=== PATIENT | male | born 1945 | race Caucasian/White ===

== ENCOUNTER 2022-03-02 09:55 | Outpatient (REF) | payer MEDICARE, SELFPAY ==
--- NOTE | ~2022-03-02 | US_ITS ---
EXAMINATION: US ABDOMEN LIMITED CLINICAL INFORMATION: Elevated levels of liver transaminase. COMPARISON: None. TECHNIQUE: Real-time imaging of the right upper quadrant abdominal viscera. FINDINGS: PANCREAS: Normal. LIVER: The liver is normal in size. The liver contour is normal. There is diffuse heterogeneous coarse echotexture.. No focal hepatic lesion. There is mild dilated intrahepatic ducts. GALLBLADDER: There is echogenic mobile bile The gallbladder is physiologically distended measuring 10.3 x 2.5 x 4.0 cm. There is no evidence of stones, polyps, wall thickening or pericholecystic fluid.. Gallbladder wall thickness is 0.18 cm. COMMON BILE DUCT: Normal in caliber measuring 0.7 cm in diameter. RIGHT KIDNEY: No hydronephrosis or renal calculi. The kidney measures 9.4 cm in maximum dimension. There are areas of cortical thinning with lobulated contour. There are anechoic cyst in midpole measuring 1.1 x 0.8 x 1.1 cm. FREE FLUID: None. US/US abdomen limited IMPRESSION: Mildly dilated gallbladder with sludge but no echogenic stones or wall thickening. There is no tenderness in right upper quadrant. Coarse echogenic liver without focal lesions. Mild right renal cortical thinning.
== END 2022-03-02 09:56 | disposition home or self-care (01) ==
LOC: HO.HMGCX 09:55
PROVIDERS: PCP Internal Medicine; Visit Provider Internal Medicine
DX: R74.01 Elevation of levels of liver transaminase levels (principal)
CPT/HCPCS: 76705

== ENCOUNTER → 2022-10-19 09:39 | Outpatient (BNVA) | payer MEDICARE, SELFPAY | PROVIDERS: PCP Internal Medicine; Visit Provider Internal Medicine Cardiovascular Disease | DX: I48.19 Other persistent atrial fibrillation (principal); I25.10 Atherosclerotic heart disease of native coronary artery without angina pectoris; Z79.899 Other long term (current) drug therapy | CPT/HCPCS: 93005; 99202 ==

== ENCOUNTER → 2022-10-28 10:45 | Outpatient (REF) | payer MEDICARE, SELFPAY ==
--- NOTE | 2022-10-28 10:58 | CA_ITS ---
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 The calculated ejection fraction is 52% by biplane method. - There is moderately increased left ventricular wall thickness. - The basal inferior and basal inferolateral segments are akinetic. - No obvious valvular pathology seen on this study. Findings Left Ventricle Normal left ventricular cavity size. There is moderately increased left ventricular wall thickness. The left ventricular systolic function is low normal. The calculated ejection fraction is 52% by biplane method. Diastolic function is indeterminate on the basis of available data. Wall Motion Rest Echo Findings The basal inferior and basal inferolateral segments are akinetic. Atria Both atria are normal in size. Aortic Valve There is mild calcification of the aortic valve. There is no aortic valve stenosis. There is no aortic valve regurgitation. Mitral Valve The mitral valve appears normal. There is trace mitral valve regurgitation. There is no mitral valve stenosis. Pulmonic Valve The pulmonic valve is likely normal. Tricuspid Valve There is trace tricuspid valve regurgitation. There is no evidence of pulmonary hypertension. Great Vessels The asc aorta is normal in size. Venous The inferior vena cava is normal in size and collapses greater than 50% with inspiration. Pericardium/Pleural There is no evidence of pericardial effusion. Prior Study Comparison No prior study available for comparison. Recommendations, Care & Conclusions No obvious valvular pathology seen on this study. Measurements 2D Linear Measurements IVSd: 1.45 0.6-0.9/0.6-1.0 cm LVIDd: 4.48 3.9-5.3/4.2-5.9 cm LVIDd Index: 2.42 2.4-3.2/2.2-3.1 cm/m2 LVIDs: 3.68 2.0-3.6 cm LVPWd: 1.37 0.7-1.1 cm Ao Root: 3.50 2.1-3.5 cm LA Diam: 4.40 2.7-3.8/3.0-4.0 cm LAIDs Index: 2.38 1.5-2.3 cm/m2 LV Mass: 311.07 67-162/88-224 g LV Mass Index: 168.14 43-95/49-115 g/m2 LVOT Diam: 2.10 3.0+(-)1.3 cm 2D Systolic Function EF 4C: 56.90 >55% EF 2C: 51.10 >55% EF BiP: 52.40 >55% Mitral Valve MV Pk E: 0.81 MV Decel Time: 172.00 E'Lateral: 12.60 E'Medial: 8.38 E/E' Med: 9.60 E/E' Lat: 6.40 PHT: 50.00 MVA PHT: 4.40 Decel [place]: 4.69 Aortic Valve AoV Pk Rafael: 1.32 AoV Mn Rafael: 0.88 AoV VTI: 0.24 AoV Pk Grad: 7.00 Aov Mn Grad: 4.00 MARNI Cont.VTI: 1.94 LVOT LVOT Pk Rafael: 0.63 LVOT Mn Rafael: 0.38 LVOT VTI: 0.13 LVOT Pk Grad: 2.00 LVOT Mn Grad: 1.00 LVOT Diam: 2.10 LVOT Area: 3.46 Diastolic Function MV Pk E: 0.81 E'Medial: 8.38 E/E' Med: 9.60 E' Laterial: 12.60 E/E' Lat: 6.40 Right Ventricle TVS' Rafael: 11.00 Tricuspid Valve TR Pk Rafael: 1.72 TR Pk Grad: 12.00 RA Press: 3.00 RVSP: 15.00 Great Vessels Aorta Ao Root-2D: 3.50 2.0-3.7 cm Ao Asc: 3.70 2.1-3.4 cm Pulmonary Valve PV Pk Rafael: 0.73 Peak PV Grad: 2.00 Updated in Other Vendor System with Status of Final Marlon Martinez MD electronically signed on 10/30/2022 10:55:51 AM with status of Final
--- NOTE | 2022-10-28 10:58 | HM_ITS ---
* Total monitoring time approximately 3 days. * Underlying rhythm is atrial fibrillation. Average ventricular rate 79/Min. Range 39 to 161/Min. * About 4% of the time, rate >100/min. * 10 pauses, greater than 2.5 seconds. Longest 3.5 seconds during sleep hours. Does not appear significant. * Frequent PVCs with a burden of 1.75%. Short runs noted. Longest 7 beats. * No patient markers or diary. MTDD
[2022-10-28 11:43] LABS: Hematocrit 48.6 % (42.0-52.0); Hemoglobin 16.2 g/dl (14.0-18.0); Mean Corpuscular HGB Conc 33.3 g/dl (31.0-36.0); Mean Corpuscular Hemoglobin 28.8 pg (27.0-33.0); Mean Corpuscular Volume 86.5 fL (80.0-98.0); Mean Platelet Volume 10.2 fL (9.4-12.4); Platelet Count 243 X10*3/uL (160-400); Red Blood Count 5.62 X10*6/uL (4.60-5.80); Red Cell Distribution Width 14.4 % (11.0-16.0); White Blood Count 12.8 X10*3/uL (4.8-10.8)
[2022-10-28 11:57] LABS: Anion Gap 15 (12-20); Blood Urea Nitrogen 54 mg/dL (9-16); Calcium 9.6 mg/dL (8.4-10.2); Carbon Dioxide 32 mmol/L (22-29); Chloride 97 mmol/L (96-108); Estimated Glomerular Filt Rate 31; Glucose Random 119 mg/dL (60-115); Potassium 4.1 mmol/L (3.3-5.1); Sodium 140 mmol/L (135-145)
== END ==
LOC: HO.CARD 10:45
PROVIDERS: PCP Internal Medicine; Visit Provider Internal Medicine Cardiovascular Disease
DX: I48.19 Other persistent atrial fibrillation (principal)
CPT/HCPCS: 36415; 80048; 85027; 93242; 93306

== ENCOUNTER → 2022-11-07 09:35 | Outpatient (REF) | payer MEDICARE, SELFPAY ==
--- NOTE | ~2022-11-07 | NM_ITS ---
Myocardial perfusion study Indication: CAD with prior coronary bypass grafting for surveillance Technique: The patient was brought in for a Lexiscan perfusion study on 11/07/2022. Patient performed low-level exercise and was injected 0.4 mg of Lexiscan intravenously. Within a minute of injection, 25 mCi of sestamibi was given intravenously. Images were obtained using the SPECT gamma camera interlaced with the gating device. Images were obtained in supine position. Resting perfusion study was performed on 11/08/2022. Patient was administered 25 mCi of sestamibi intravenously at rest. Images were then obtained in supine position. Images obtained with and without CT attenuation. Total DLP 78 mGy-cm. Images were processed with the software and compared side to side in short axis, horizontal long axis and vertical long axis views. Findings: The stress perfusion study showed non attenuated images show moderately reduced uptake in the apical and mid inferior wall and severely reduced uptake in the basal inferior and inferolateral wall of the LV myocardium. Remainder of the LV myocardium is normally perfused. Attenuated corrected images show moderately reduced uptake in the basal inferolateral and mildly reduced uptake in the lateral as well as moderately reduced uptake in the basal inferior wall of the cardiac.. The gated study shows normal LV systolic function with calculated LVEF of 55%. LV cavity is normal in size. The gated study shows normal systolic wall thickening and contraction of segments. Resting study shows non attenuated images show partially improved uptake in the basal inferior and inferolateral wall of the LV myocardium. Attenuated corrected images also show improved uptake in the basal inferolateral and inferior wall of the LV myocardium.. Gating at rest reveals normal systolic wall motion with ejection fraction at 57%. The findings are consistent with small area of mild intensity basal inferolateral and inferior reversible defect suggestive of ischemia. NM/NM yadiel perf SPECT rest & str Impression: 1. Myocardial perfusion imaging study shows low risk study with mild intensity basal inferior and inferolateral ischemia 2. Gated LVEF is 55% 3. Transient ischemic dilatation not present EKG is nondiagnostic for ischemia
--- NOTE | 2022-11-07 09:37 | CA_ITS ---
Acquisition Time: 2022-11-07 09:46:55 Total Exercise Time: 00:02:00 Test Indications: CAD Medications: SEE H Protocol: LEXISCAN Max HR: 121 BPM 85% of Pred: 142 BPM Max BP: 154/072 mmHG Max Work Load: 1.0 METS Pharmacological stress test with Lexiscan injection, while sitting and kicking his legs, without anginal symptoms, with isolated PVCs, with normotensive response to injection, with nondiagnostic EKG for ischemia. In recovery he reported lmild lightheadedness that was treated with Aminophylline 75mg IVP to reverse Lexiscan with resolution of symptom. Nuclear images pending. Test reviewed with Dr Martinez Referred By: Timmy Sebastian Overread By: ADA ARGUELLO
== END ==
LOC: HO.CARD 09:35
PROVIDERS: PCP Internal Medicine; Visit Provider Internal Medicine Cardiovascular Disease
DX: I25.10 Atherosclerotic heart disease of native coronary artery without angina pectoris (principal)
CPT/HCPCS: 78452; 93017; A9500; J0280; J2785

== ENCOUNTER 2022-11-08 11:15 | Outpatient (REF) | payer MEDICARE, SELFPAY ==
--- NOTE | ~2022-11-08 | US_ITS ---
EXAMINATION: US EXTRACRANIAL CAROTID DUPLEX, BILATERAL CLINICAL INFORMATION: Carotid occlusion and stenosis. COMPARISON: None TECHNIQUE: Real-time ultrasound and Doppler techniques (integrating B-mode 2-D vascular images, Doppler spectral analysis and color-flow Doppler imaging) were utilized to interrogate the extracranial carotid arteries, the vertebral arteries and proximal subclavian arteries bilaterally. The degree of stenosis is determined by criteria similar to NASCET. FINDINGS: Right Side: 1. There is mild atherosclerotic plaque seen in the bifurcation/proximal ICA region. 2. The common carotid artery PSV proximally is 74 cm/s and distally 35 cm/s. 3. The proximal internal carotid artery velocities are 59 cm/s systolic and 14 cm/s diastolic. 4. The proximal external carotid artery PSV is 152 cm/s. 5. The vertebral artery shows antegrade flow. 6. The subclavian artery waveforms are normal. Left Side: 1. There is mild atherosclerotic plaque seen in the bifurcation/proximal ICA region. There is a stent in the proximal ICA which appears patent. 2. The common carotid artery PSV proximally is 75 cm/s and distally 41 cm/s. 3. The proximal internal carotid artery velocities are 43 cm/s systolic and 11 cm/s diastolic. 4. The proximal external carotid artery PSV is 136 cm/s. 5. The vertebral artery shows bidirectional flow. 6. The subclavian artery waveforms are normal. There is an arrhythmia seen. US/US carotid duplex BI IMPRESSION: 1. RIGHT: Minimal, non-hemodynamically significant stenosis of the proximal right internal carotid artery corresponding to a 0-49% stenosis by velocity criteria. 2. LEFT: Minimal, non-hemodynamically significant stenosis of the proximal left internal carotid artery corresponding to a 0-49% stenosis by velocity criteria. The internal carotid stent appears patent. 3. There is bidirectional flow in the left vertebral artery which may represent early subclavian steal.
== END 2022-11-08 11:16 | disposition home or self-care (01) ==
LOC: HO.US 11:15
PROVIDERS: PCP Internal Medicine; Visit Provider Internal Medicine Cardiovascular Disease
DX: I65.23 Occlusion and stenosis of bilateral carotid arteries (principal)
CPT/HCPCS: 93880

== ENCOUNTER → 2022-11-30 08:34 | Outpatient (BNVA) | payer MEDICARE, SELFPAY | PROVIDERS: PCP Internal Medicine; Referring Provider Internal Medicine; Visit Provider Internal Medicine Cardiovascular Disease | DX: I48.19 Other persistent atrial fibrillation (principal); I25.10 Atherosclerotic heart disease of native coronary artery without angina pectoris | CPT/HCPCS: 99212 ==

== ENCOUNTER → 2023-05-04 10:06 | Outpatient (REF) | payer MEDICARE, SELFPAY ==
--- NOTE | 2023-05-04 10:12 | HM_ITS ---
* Total monitoring time about 7 days. * Underlying rhythm is atrial fibrillation. Average ventricular rate 72/Min. Range 33-155/Min. * About 2.8% the time, rate less than 60/Min. About 3.8% the time, rate greater than 100/Min. * Frequent premature ventricular contractions with a burden of 1.9%. Occasional couplets. Longest run 3 beats. * Pauses noted, longest 3. 6 seconds, primarily during sleep hours. No significant pauses during the daytime hours. Do not reach significance. * No patient markers or events in diary. * Mostly well-controlled atrial fibrillation with occasional rapid rates. MTDD
== END ==
LOC: HO.CARD 10:06
PROVIDERS: PCP Internal Medicine; Visit Provider Internal Medicine Cardiovascular Disease
DX: I48.19 Other persistent atrial fibrillation (principal)
CPT/HCPCS: 93242

== ENCOUNTER → 2023-05-04 10:12 | Outpatient (BNV) | payer MEDICARE, SELFPAY | PROVIDERS: PCP Internal Medicine; Visit Provider Internal Medicine | DX: I48.19 Other persistent atrial fibrillation (principal) | CPT/HCPCS: 93244 ==

== ENCOUNTER 2023-06-05 09:52 | Outpatient (REF) | payer MEDICARE, SELFPAY ==
[2023-06-05 12:02] LABS: Hematocrit 45.2 % (42.0-52.0); Hemoglobin 14.8 g/dl (14.0-18.0); Mean Corpuscular HGB Conc 32.7 g/dl (31.0-36.0); Mean Corpuscular Hemoglobin 28.3 pg (27.0-33.0); Mean Corpuscular Volume 86.4 fL (80.0-98.0); Mean Platelet Volume 10.8 fL (9.4-12.4); Platelet Count 267 X10*3/uL (160-400); Red Blood Count 5.23 X10*6/uL (4.60-5.80); Red Cell Distribution Width 16.9 % (11.0-16.0); White Blood Count 9.8 X10*3/uL (4.8-10.8)
[2023-06-05 13:04] LABS: Anion Gap 15 (12-20); Blood Urea Nitrogen 33 mg/dL (9-16); Calcium 9.8 mg/dL (8.4-10.2); Carbon Dioxide 29 mmol/L (22-29); Chloride 100 mmol/L (96-108); Cholesterol 196 mg/dL (<200); Estimated Glomerular Filt Rate 34; Glucose Random 86 mg/dL (60-115); HDL Cholesterol 32 mg/dL (>40); LDL Cholesterol Calculated 142 mg/dL (<100); Sodium 139 mmol/L (135-145); Triglycerides 112 mg/dL (<150)
== END 2023-06-05 09:53 | disposition home or self-care (01) ==
LOC: HO.LAB 09:52
PROVIDERS: PCP Internal Medicine; Visit Provider Internal Medicine Cardiovascular Disease
DX: I25.10 Atherosclerotic heart disease of native coronary artery without angina pectoris (principal); I48.19 Other persistent atrial fibrillation
CPT/HCPCS: 36415; 80048; 80061; 85027; 93005; 99212

== ENCOUNTER 2023-06-05 09:52 | Outpatient (AMB) | payer MEDICARE, SELFPAY ==
--- NOTE | 2023-06-05 09:54 | A.OFFVIS_ITS ---
Intake Vital Signs 06/05/23 09:55 Height 5 ft 9 in Weight 156 lb 8.451 oz BMI 23.1 BP 120/82 Blood Pressure Location Lt brachial Position Sitting Pulse 88 Intake Visit Reasons: 6 month f/ up after testing Intake Note: 6 month follow-up with ekg was in [facility] [employer] Required: No Allergies acetaminophen [From Tylenol] Adverse Reaction (Severe, Verified 11/30/22 08:42) Difficulty Breathing Medication List - Last Reconciled 06/05/23 by Timmy Sebastian MD allopurinol 50 mg PO DAILY amlodipine 5 mg PO DAILY apixaban (Eliquis) 5 mg PO BID atorvastatin 40 mg PO BEDTIME bromfenac 0.09% 1 drp ophthalmic (eye) DAILY cholecalciferol (vitamin D3) 50 mcg PO DAILY cilostazol 50 mg PO BID metoprolol tartrate 25 mg PO BID pantoprazole 40 mg PO DAILY torsemide 20 mg PO BID HPI HPI Comments History of Present Illness Details Migue comes for follow-up. He has been doing well from cardiac perspective. Denies any cardiac symptoms. Denies any exertional angina. Denies any shortness of breath, orthopnea, PND, leg edema. Denies any prolonged palpitation irregular heartbeat. No changes exercise capacity overall. No bleeding issues or neurologic events. No lightheadedness, syncope. Takes all his medications. [facility] Medical History Internal carotid artery stent present PVD (peripheral vascular disease) CVA (cerebral vascular accident) Surgical History S/P CABG x 5 Family History Mother No problems noted. Father No problems noted. Social History Alcohol intake: former Year quit: 2021 Patient Tobacco Use Status: Current everyday Tobacco user Tobacco use type: Cigarette Cigarettes Per Day: 3 Review of Systems Const Denies chills, Denies fatigue, Denies fever(s), Denies frequent falls, Denies weakness, Denies weight gain and Denies weight loss ENT Denies dizziness Card Denies chest pain, Denies leg edema, Denies lightheadedness, Denies palpitations, Denies dyspnea, Denies dyspnea on exertion, Denies orthopnea and Denies other (loss of consciousness) Resp Denies cough, Denies dyspnea and Denies dyspnea on exertion GI Denies hematochezia and Denies change in stool character Musc Denies abnormal gait, Denies muscle weakness, Denies numbness, Denies radiating pain into limb and Denies tingling Neuro Denies Abnormal speech present, Denies abnormal gait, Denies dizziness, Denies frequent falls, Denies numbness, Denies tingling and Denies weakness Endo Denies fatigue and Denies palpitations Physical Exam Vital Signs: Last Vital Signs Pulse 88 06/05/23 09:55 BP 120/82 06/05/23 09:55 BMI result Body Mass Index 23.1 Const General: cooperative, comfortable, no acute distress, alert, awake, Physically active and well groomed Nutritional Appearance: thin Orientation/consciousness: patient oriented x3 Limitations: no limitations HEENT Head: Yes normocephalic and Yes atraumatic Neck Neck: Yes trachea midline, Yes supple and Yes no JVD Carotids: no bruits Chest Chest palpation & inspection: other ( Well-healed sternotomy scar) Resp Effort & Inspection: normal respiratory effort Auscultation: clear to auscultation bilaterally and diminished lung sounds Cardio Jugular venous distension: no JVD Rate: regular rate Rhythm: abnormal rhythm irregularly irregular Heart sounds: S1 normal heart sound present, S2 normal heart sound present, no click, no gallops and no murmurs Skin General skin exam: no rashes or lesions noted and ecchymosis Neuro General: patient oriented x3 and no focal motor deficits Speech: No Abnormal speech present Extrem General: Yes no clubbing, cyanosis or edema Office Procedures EKG Details: EKG shows atrial fibrillation with Q-waves in inferior leads with nonspecific ST changes [id number], Complete Assessment & Plan Assessment & Plan (1) CAD (coronary artery disease): Code(s): I25.10 - Atherosclerotic heart disease of [place] coronary artery without angina pectoris Plan: CAD with prior carpal coronary artery bypass grafting with possible branch vessel disease by myocardial perfusion imaging without any symptoms angina. He does have diffuse vascular disease including bilateral carotid disease as well as lower extremity disease. This is being followed by vascular surgery. His cardiac status currently stable. Continue full oral anticoagulation apixaban and avoid antiplatelet agent to reduce bleeding risk. Continue high-intensity statin therapy we. Target goal LDL closer to 60 mg/dL. Blood pressure is currently well optimized. (2) Persistent atrial fibrillation: Code(s): I48.19 - Other persistent atrial fibrillation Plan: Persistent rate control atrial fibrillation without any obvious symptoms or signs of cardiac decompensation. He is currently on high diuretic does he said was prescribed for leg edema. Ten other clinical signs of congestive heart failure. Continue current rate control strategy. Continue full oral anticoagulation. Quarterly renal function test should be pursued. Will follow up in the clinic in 6 months time after an echocardiogram. Thank you for allowing me to partake in his care Orders: Orders CA echo transthoracic complete 6 Months I48.19 - Other persistent atrial fibrillation Basic Metabolic Panel Today I48.19 - Other persistent atrial fibrillation Coding Level of Care Code Est Pt Level 4 (48052) Diagnoses CAD (coronary artery disease) I25.10 Persistent atrial fibrillation I48.19 CPT Codes EKG - CPT: 51524-[id number], Complete ([id number])
[2023-06-05 09:55] VITALS: BP 120/82; PULSE 88; BMI 23.1
== END 2023-06-05 10:26 | disposition home or self-care (01) ==
PROVIDERS: PCP Internal Medicine; Visit Provider Internal Medicine Cardiovascular Disease
DX: I25.10 Atherosclerotic heart disease of native coronary artery without angina pectoris (principal); I48.19 Other persistent atrial fibrillation
CPT/HCPCS: 93010; 99214

== ENCOUNTER 2023-07-24 18:08 | Outpatient (REF) | payer MEDICARE, SELFPAY ==
[2023-07-24 19:19] LABS: Influenza A PCR NEGATIVE (Negative); Influenza B PCR NEGATIVE (Negative); Resp Syncy Virus RNA Qual PCR POSITIVE (Negative); SARS COV2 PCR INHOUSE NEGATIVE (Negative)
== END 2023-07-24 18:09 | disposition home or self-care (01) ==
LOC: HO.CHCLNP 18:08
PROVIDERS: Visit Provider Family Medicine
DX: Z11.52 Encounter for screening for COVID-19 (principal); J06.9 Acute upper respiratory infection, unspecified
CPT/HCPCS: 0241U

== ENCOUNTER 2023-11-06 09:50 | Outpatient (AMB) | payer MEDICARE, SELFPAY ==
--- NOTE | 2023-11-05 19:04 | A.OFFVIS_ITS ---
Intake Vital Signs 11/06/23 09:51 Height 5 ft Weight 165 lb 5.547 oz BMI 32.3 BP 130/70 Blood Pressure Location Rt brachial Position Sitting Pulse 65 Pulse Source Pulse Oximeter Pulse Oximetry (%) 98 Oxygen Delivery Method Room Air Intake Visit Reasons: Chronic Bronchitis Grants Specialist Required: No Risk And Insurance Manager: Risk And Insurance Manager offered & declined Accompanied by: Self / Same As Patient Allergies acetaminophen [From Tylenol] Adverse Reaction (Severe, Verified 11/06/23 09:58) Difficulty Breathing Medication List - Last Reconciled 11/06/23 by Agustina Perera LPN allopurinol 50 mg PO DAILY amlodipine 5 mg PO DAILY apixaban (Eliquis) 5 mg PO BID atorvastatin 40 mg PO BEDTIME cholecalciferol (vitamin D3) 50 mcg PO DAILY cilostazol 50 mg PO BID metoprolol tartrate 25 mg PO BID pantoprazole 40 mg PO DAILY torsemide 20 mg PO BID HPI Chronic Bronchitis HPI Details Migue is a pleasant 77-year-old male, current minimal smoker with 30+ pyh, with underlying COPD, atrial fibrillation on anticoagulation and coronary artery disease status post CABG x5. He was referred by PCP for pulmonary evalu ation and for prolonged cough after URI. He was reportedly treated with antibiotics, unsure of name, and feels as though symptoms are back to baseline. CXR unremarkable,performed at [facility], report below. He denies any dyspnea, wheezing or chest tightness. However he does report intermittent fatigue after moderate exertion as well as a productive cough with clear sputum. 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 He is not interested in a daily inhaler at this time. He reports possible occupational exposures to asbestos, was in the [place] x 4 years. He reports sister, smoker, with COPD, otherwise no pertinent family history. He denies any history of asthma. Of note, patient also under the care of cardiology for CAD. He last had echo in 2022, report below. He denies any chest pain, palpitations, or dizziness. [facility], [facility] Medical History Internal carotid artery stent present PVD (peripheral vascular disease) CVA (cerebral vascular accident) Surgical History S/P CABG x 5 Family History Mother No problems noted. Father No problems noted. Social History (Updated 11/06/23 @ 10:01 by Agustina Perera LPN) Alcohol intake: former Year quit: 2021 Patient Tobacco Use Status: Current everyday Tobacco user Tobacco use type: Cigarette Cigarettes Per Day: 5 Review of Systems Const Denies chills, Denies excessive sweating, Denies fever(s), Denies headache(s) and Denies night sweats Eyes Denies dry eyes, Denies irritation and Denies itchy eyes ENT Reports Normal hearing present, Denies headache(s), Denies nasal congestion, Denies nasal discharge, Denies post nasal drip and Denies sore throat Card Denies chest pain, Denies chest pain at rest, Denies chest pain with activity, Denies claudication, Denies leg edema, Denies orthopnea and Denies paroxysmal nocturnal dyspnea Resp Denies chest congestion, Denies cough, Denies excessive phlegm production, Denies pain on inspiration, Denies pain with cough, Denies stridor and Denies wheezing Musc Denies myalgias Neuro Reports Normal hearing present and Denies headache(s) Endo Denies excessive sweating Sawyer/Lymph Denies lymphadenopathy Aller/Immun Denies itchy eyes, Denies seasonal rhinorrhea and Denies wheezing Physical Exam Vital Signs: Last Vital Signs Pulse 65 11/06/23 09:51 BP 130/70 11/06/23 09:51 Pulse Ox 98 11/06/23 09:51 Oxygen Delivery Method Room Air 11/06/23 09:51 BMI result Body Mass Index 32.3 Const General: cooperative, healthy appearing, comfortable, no acute distress, well developed and alert Orientation/consciousness: patient oriented x3 Limitations: no limitations HEENT Head: Yes normal to inspection, Yes normocephalic and Yes atraumatic Ears: hearing grossly normal bilaterally and external ears normal Eyes General: appearance normal, both eyes and all related structures Eyelids: Yes eyelids normal Sclerae: sclerae normal EOM: EOMs intact bilaterally Neck Neck: Yes normal visual inspection and Yes no lymphadenopathy Lymphatic: no lymphadenopathy noted Chest Chest palpation & inspection: normal inspection of the chest Resp Effort & Inspection: normal respiratory effort, able to speak in complete sentences, no audible wheezes, no cough, no stridor, not tachypneic, no tripod positioning and no use of accessory muscles Auscultation: no crackles, no wheezes and diminished lung sounds Cardio Jugular venous distension: no JVD Rate: regular rate Rhythm: regular rhythm Skin Other: warm, dry General skin exam: no rashes or lesions noted Neuro General: patient oriented x3 Cranial nerves: Yes Normal hearing present Cognition (Neuro): normal cognition Gait exam (Neuro): Normal gait present Extrem General: Yes normal to inspection, Yes capillary refill normal, Yes no clubbing, cyanosis or edema and Yes no pedal edema Psych Appearance: grossly normal and well kempt Speech and movement: Normal speech and movement present and Clear speech present Affect: normal affect Attitude: cooperative Thought process: Normal thought process present Thought content: Normal thought content present Insight: Good insight present (Psych) Judgement: Good judgement present (Psych) Results Reviewed Results Reviewed: PROCEDURE: XR CHEST 2 views INDICATION: Cough, history of heart problems and current smoker. TECHNIQUE: Frontal and lateral chest (three images). COMPARISON: None Available. FINDINGS: Postsurgical changes, including sternotomy wires, identified in the chest. The cardiomediastinal silhouette is within normal limits. There is some slight flattening of the diaphragm, suggesting hyper inflation, most likely relating to COPD. The remainder of the lungs and pleural spaces are clear. Multiple old left rib fractures noted. IMPRESSION: Findings suggesting COPD. No plain film signs of an acute process in the chest. Que Cheng MD Signed by Que Cheng MD [facility] provided for [facility] Electronically signed on 08/30/2023 9:03:00 AM by Que Cheng MD [place] [id number] Cardiology Report Signed Patient: Migue Wilson MR#: [id number] : 1945 Acct:[id number] Age/Sex: 76 / M ADM Date: 10/28/22 Loc: [facility] Attending Dr: Timmy Sebastian MD Ordering Physician: Timmy Sebastian MD Date of Service: 10/28/22 Procedure(s): CA echo transthoracic complete Accession Number(s): cc: Timmy Sebastian MD~ Transthoracic Echocardiogram Patient (Last, First, Middle): Miuge Wilson R Gender: Male Date of : 1945 Age: 76 Procedure Date: 10/28/2022 Procedure Type: Transthoracic Echocardiogram Location: OP Height: 175.26 cm Weight: 70.31 kg BSA: 1.85 m2 Heart Rate: bpm BP: 118 / 66 mmHg Full Time Babysitter: CARSON Referring MD: Timmy Sebastian MD Symptoms: I48.19 - Other persistent atrial fibrillation Study Quality: Fair ECG Rhythm: Atrial Fibrillation Conclusions: - The left ventricular systolic function is low normal. The calculated ejection fraction is 52% by biplane method. - There is moderately increased left ventricular wall thickness. - The basal inferior and basal inferolateral segments are akinetic. - No obvious valvular pathology seen on this study. Findings Left Ventricle Normal left ventricular cavity size. There is moderately increased left ventricular wall thickness. The left ventricular systolic function is low normal. The calculated ejection fraction is 52% by biplane method. Diastolic function is indeterminate on the basis of available data. Wall Motion Rest Echo Findings The basal inferior and basal inferolateral segments are akinetic. Atria Both atria are normal in size. Aortic Valve There is mild calcification of the aortic valve. There is no aortic valve stenosis. There is no aortic valve regurgitation. Mitral Valve The mitral valve appears normal. There is trace mitral valve regurgitation. There is no mitral valve stenosis. Pulmonic Valve The pulmonic valve is likely normal. Tricuspid Valve There is trace tricuspid valve regurgitation. There is no evidence of pulmonary hypertension. Great Vessels The asc aorta is normal in size. Venous The inferior vena cava is normal in size and collapses greater than 50% with inspiration. Pericardium/Pleural There is no evidence of pericardial effusion. Prior Study Comparison No prior study available for comparison. Recommendations, Care & Conclusions No obvious valvular pathology seen on this study. Measurements 2D Linear Measurements IVSd: 1.45 0.6-0.9/0.6-1.0 cm LVIDd: 4.48 3.9-5.3/4.2-5.9 cm LVIDd Index: 2.42 2.4-3.2/2.2-3.1 cm/m2 LVIDs: 3.68 2.0-3.6 cm LVPWd: 1.37 0.7-1.1 cm Ao Root: 3.50 2.1-3.5 cm LA Diam: 4.40 2.7-3.8/3.0-4.0 cm LAIDs Index: 2.38 1.5-2.3 cm/m2 LV Mass: 311.07 67-162/88-224 g LV Mass Index: 168.14 43-95/49-115 g/m2 LVOT Diam: 2.10 3.0+(-)1.3 cm 2D Systolic Function EF 4C: 56.90 >55% EF 2C: 51.10 >55% EF BiP: 52.40 >55% Mitral Valve MV Pk E: 0.81 MV Decel Time: 172.00 E'Lateral: 12.60 E'Medial: 8.38 E/E' Med: 9.60 E/E' Lat: 6.40 PHT: 50.00 MVA PHT: 4.40 Decel Frontier: 4.69 Aortic Valve AoV Pk Rafael: 1.32 AoV Mn Rafael: 0.88 AoV VTI: 0.24 AoV Pk Grad: 7.00 Aov Mn Grad: 4.00 MARNI Cont.VTI: 1.94 LVOT LVOT Pk Rafael: 0.63 LVOT Mn Rafael: 0.38 LVOT VTI: 0.13 LVOT Pk Grad: 2.00 LVOT Mn Grad: 1.00 LVOT Diam: 2.10 LVOT Area: 3.46 Diastolic Function MV Pk E: 0.81 E'Medial: 8.38 E/E' Med: 9.60 E' Laterial: 12.60 E/E' Lat: 6.40 Right Ventricle TVS' Rafael: 11.00 Tricuspid Valve TR Pk Rafael: 1.72 TR Pk Grad: 12.00 RA Press: 3.00 RVSP: 15.00 Great Vessels Aorta Ao Root-2D: 3.50 2.0-3.7 cm Ao Asc: 3.70 2.1-3.4 cm Pulmonary Valve PV Pk Rafael: 0.73 Peak PV Grad: 2.00 Updated in Other Vendor System with Status of Final Marlon Martinez MD electronically signed on 10/30/2022 10:55:51 AM with status of Final Dictated By: Marlon Martinez MD Signed By: <Electronically signed by Marlon Martinez MD in OV> 10/30/22 1055 DD/ 1107 TD/TT: Crystal Machining Coordinator: Assessment & Plan Assessment & Plan (1) COPD (chronic obstructive pulmonary disease): Code(s): J44.9 - Chronic obstructive pulmonary disease, unspecified (2) Cough: Code(s): R05.9 - Cough, unspecified (3) Nicotine dependence, cigarettes, uncomplicated: Code(s): F17.210 - Nicotine dependence, cigarettes, uncomplicated Plan Migue reports resolution of symptoms after antibiotic treatment in September where he had a productive cough and dyspnea with minimal exertion. He feels as though symptoms are back to baseline and well controlled other than occasional fatigue after moderate exertion. Likely related to underlying COPD, will send for PFT to assess severity. Discussed empirically trialing a daily inhaler, but patient declined at this time. Will also send for chest CT given smoking history. All questions were answered and patient is in agreement of plan. Will follow-up to review results of PFT and chest CT, or sooner if needed. Orders: Orders CT chest wo IV con Today R06.00 - Dyspnea, unspecified PFT pulmonary function test Today J44.9 - Chronic obstructive pulmonary disease, unspecified Coding Level of Care Code New Pt Level 4 (05127) Diagnoses COPD (chronic obstructive pulmonary disease) J44.9 Cough R05.9 Nicotine dependence, cigarettes, uncomplicated F17.210
[2023-11-06 09:51] VITALS: BP 130/70; PULSE 65; O2SAT 98; BMI 32.3
== END 2023-11-06 10:37 | disposition home or self-care (01) ==
PROVIDERS: PCP Internal Medicine; Referring Provider Internal Medicine; Visit Provider Nurse Practitioner Family
DX: J44.9 Chronic obstructive pulmonary disease, unspecified (principal); R05.9 Cough, unspecified; F17.210 Nicotine dependence, cigarettes, uncomplicated
CPT/HCPCS: 99204

== ENCOUNTER → 2023-11-06 09:50 | Outpatient (BNVA) | payer MEDICARE, SELFPAY | PROVIDERS: PCP Internal Medicine; Referring Provider Internal Medicine; Visit Provider Nurse Practitioner Family | DX: J44.9 Chronic obstructive pulmonary disease, unspecified (principal); R05.9 Cough, unspecified; F17.210 Nicotine dependence, cigarettes, uncomplicated | CPT/HCPCS: 99202 ==

== ENCOUNTER 2023-11-22 14:55 | Outpatient (REF) | payer MEDICARE, SELFPAY ==
--- NOTE | 2023-11-22 15:00 | PFT_ITS ---
Flows: FEV1: 111 % of predicted at 2.61 L FVC: 150 % of predicted at 4.65 L FEV1/FVC: 56 % Bronchodilator response: Absent Volumes: Total lung capacity: 121 % of predicted at 7.19 L Residual volume: 107 % of predicted at 2.88 L Slow vital capacity: 138 % of predicted at 4.3 to L Expiratory reserve volume: 189 % of predicted at 1.55 L Diffusion capacity: Normal Impression: Moderate obstructive ventilatory defect with no bronchodilator response. Increased total lung capacity suggests hyperinflation. MTDD
== END 2023-11-22 14:56 | disposition home or self-care (01) ==
LOC: HO.RESP 14:55
PROVIDERS: PCP Internal Medicine; Visit Provider Nurse Practitioner Family
DX: J44.9 Chronic obstructive pulmonary disease, unspecified (principal)
CPT/HCPCS: 94010; 94640; 94727; 94729

== ENCOUNTER 2023-12-07 13:20 | Outpatient (AMB) | payer MEDICARE, SELFPAY ==
--- NOTE | 2023-12-07 13:25 | A.OFFVIS_ITS ---
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 He is accompanied by his son's friend. Patient has been doing well. He denies any cardiac symptoms. Denies any worsening shortness of breath, exertional chest pain. No orthopnea, PND, leg edema. No shortness of breath as per him. He is taking all his medications. No bleeding issues or neurologic events. Complains of pain in the right lower extremity with exercise, says that this is related to sciatica. He sees vascular surgery at [facility] although does not recall when the last time he saw them. [facility] Medical History Internal carotid artery stent present PVD (peripheral vascular disease) CVA (cerebral vascular accident) Surgical History S/P CABG x 5 Family History Mother No problems noted. Father No problems noted. Social History Alcohol intake: former Year quit: 2021 Patient Tobacco Use Status: Current everyday Tobacco user Tobacco use type: Cigarette Cigarettes Per Day: 5 Review of Systems Const Denies chills, Denies fatigue, Denies fever(s), Denies frequent falls, Denies weakness, Denies weight gain and Denies weight loss ENT Denies dizziness Card Denies chest pain, Denies leg edema, Denies lightheadedness, Denies palpitations, Denies dyspnea, Denies dyspnea on exertion, Denies orthopnea and Denies other (loss of consciousness) Resp Denies cough, Denies dyspnea and Denies dyspnea on exertion GI Denies hematochezia and Denies change in stool character Musc Denies abnormal gait, Denies muscle weakness, Denies numbness, Denies radiating pain into limb and Denies tingling Neuro Denies Abnormal speech present, Denies abnormal gait, Denies dizziness, Denies frequent falls, Denies numbness, Denies tingling and Denies weakness Endo Denies fatigue and Denies palpitations Physical Exam Vital Signs: Last Vital Signs Pulse 72 12/07/23 13:26 BMI result Body Mass Index 24.4 Const General: cooperative, comfortable, no acute distress, alert, awake, Physically active and well groomed Nutritional Appearance: thin Orientation/consciousness: patient oriented x3 Limitations: no limitations HEENT Head: Yes normocephalic and Yes atraumatic Neck Neck: Yes trachea midline, Yes supple and Yes no JVD Carotids: no bruits Chest Chest palpation & inspection: other ( Well-healed sternotomy scar) Resp Effort & Inspection: normal respiratory effort Auscultation: clear to auscultation bilaterally and diminished lung sounds Cardio Jugular venous distension: no JVD Rate: regular rate Rhythm: abnormal rhythm irregularly irregular Heart sounds: S1 normal heart sound present, S2 normal heart sound present, no click, no gallops and no murmurs Skin General skin exam: no rashes or lesions noted and ecchymosis Neuro General: patient oriented x3 and no focal motor deficits Speech: No Abnormal speech present Extrem General: Yes no clubbing, cyanosis or edema Assessment & Plan Assessment & Plan (1) CAD (coronary artery disease): Code(s): I25.10 - Atherosclerotic heart disease of [place] coronary artery without angina pectoris Plan: CAD with coronary artery bypass grafting x5 remotely. No current symptoms suggestive angina. No change in therapy is required. Continue aggressive medical therapy. He is currently on full oral anticoagulation Eliquis and therefore would avoid antiplatelet agent to reduce bleeding risk. Currently on high-intensity statin therapy. Target goal LDL less than 70 mg/dL. Blood pressure is currently well optimized advised to monitor blood pressure at home maintain a log. Goal blood pressure less than 130/84. Advise to maintain activity level as tolerated. Advised to call me with any new symptoms. Encouraged to continue follow with vascular surgery. (2) Persistent atrial fibrillation: Code(s): I48.19 - Other persistent atrial fibrillation Plan: Persistent rate control atrial fibrillation, currently rate control with metoprolol therapy. Given longstanding atrial fibrillation will pursue rate control. Continue full oral anticoagulation, currently on Eliquis 5 mg b.i.d.. Semi annual renal function test should be pursued. No signs or symptoms of heart failure although he is also on torsemide therapy at this point in time. Will follow up in the clinic in 6 months time, sooner p.r.n.. Thank you for allowing me to partake in his care Coding Level of Care Code Est Pt Level 4 (96322) Diagnoses CAD (coronary artery disease) I25.10 Persistent atrial fibrillation I48.19
[2023-12-07 13:26] VITALS: PULSE 72; BMI 24.4
== END 2023-12-07 13:52 | disposition home or self-care (01) ==
PROVIDERS: PCP Internal Medicine; Visit Provider Internal Medicine Cardiovascular Disease
DX: I25.10 Atherosclerotic heart disease of native coronary artery without angina pectoris (principal); I48.19 Other persistent atrial fibrillation
CPT/HCPCS: 99214

== ENCOUNTER → 2023-12-07 13:20 | Outpatient (BNVA) | payer MEDICARE, SELFPAY | PROVIDERS: PCP Internal Medicine; Visit Provider Internal Medicine Cardiovascular Disease | DX: I25.10 Atherosclerotic heart disease of native coronary artery without angina pectoris (principal); I48.19 Other persistent atrial fibrillation | CPT/HCPCS: 99212 ==

== ENCOUNTER 2023-12-11 14:51 | Outpatient (AMB) | payer MEDICARE, SELFPAY ==
[2023-12-11 15:04] VITALS: BP 122/68; PULSE 88; O2SAT 97; BMI 24.4
--- NOTE | 2023-12-11 15:04 | MHC.OFFVIS ---
Intake Vital Signs 12/11/23 15:04 Height 5 ft 9 in Weight 165 lb 5.547 oz BMI 24.4 BP 122/68 Blood Pressure Location Lt brachial Position Sitting Pulse 88 Pulse Source Pulse Oximeter Pulse Oximetry (%) 97 Oxygen Delivery Method Room Air Intake Visit Reasons: chronic bronchitis Dray Truck Driver Required: No Molecular Pathologist: Molecular Pathologist offered & declined Accompanied by: Self / Same As Patient Allergies acetaminophen [From Tylenol] Adverse Reaction (Severe, Verified 12/11/23 15:08) Difficulty Breathing Medication List - Last Reconciled 12/11/23 by Agustina Perera LPN allopurinol 100 mg PO DAILY amlodipine 5 mg PO DAILY apixaban (Eliquis) 5 mg PO BID atorvastatin 40 mg PO BEDTIME cholecalciferol (vitamin D3) 50 mcg PO DAILY cilostazol 50 mg PO BID metoprolol tartrate 25 mg PO BID pantoprazole 40 mg PO DAILY torsemide 20 mg PO ONCE HPI chronic bronchitis HPI Details Migue is a pleasant 78-year-old male, current minimal smoker with 30+ pyh, with underlying COPD, atrial fibrillation on anticoagulation and coronary artery disease status post CABG x5. He was initially referred for chronic cough, treated with antibiotics with moderate improvement in symptoms. Prior CXR unremarkable. He continues to report decreased exercise capacity and dry cough, was prescribed Spiriva but was not financially feasible. He denies wheezing or chest tightness. At the last visit, he was sent for chest CT but unfortunately insurance denied. He was also sent for PFT and presents to review results. [facility] Medical History Internal carotid artery stent present PVD (peripheral vascular disease) CVA (cerebral vascular accident) Surgical History S/P CABG x 5 Family History Mother No problems noted. Father No problems noted. Social History Alcohol intake: former Year quit: 2021 Patient Tobacco Use Status: Current everyday Tobacco user Tobacco use type: Cigarette Cigarettes Per Day: 5 Review of Systems Const Denies chills, Denies excessive sweating, Denies fever(s), Denies headache(s) and Denies night sweats Eyes Denies dry eyes, Denies irritation and Denies itchy eyes ENT Reports Normal hearing present, Denies headache(s), Denies nasal congestion, Denies nasal discharge, Denies post nasal drip and Denies sore throat Card Denies chest pain, Denies chest pain at rest, Denies chest pain with activity, Denies claudication, Denies leg edema, Denies orthopnea and Denies paroxysmal nocturnal dyspnea Resp Denies chest congestion, Denies cough, Denies excessive phlegm production, Denies pain on inspiration, Denies pain with cough, Denies stridor and Denies wheezing Musc Denies myalgias Neuro Reports Normal hearing present and Denies headache(s) Endo Denies excessive sweating Sawyer/Lymph Denies lymphadenopathy Aller/Immun Denies itchy eyes, Denies seasonal rhinorrhea and Denies wheezing Physical Exam Vital Signs: Last Vital Signs Pulse 88 12/11/23 15:04 BP 122/68 12/11/23 15:04 Pulse Ox 97 12/11/23 15:04 Oxygen Delivery Method Room Air 12/11/23 15:04 BMI result Body Mass Index 24.4 Const General: cooperative, healthy appearing, comfortable, no acute distress, well developed and alert Orientation/consciousness: patient oriented x3 Limitations: no limitations HEENT Head: Yes normal to inspection, Yes normocephalic and Yes atraumatic Ears: hearing grossly normal bilaterally and external ears normal Eyes General: appearance normal, both eyes and all related structures Eyelids: Yes eyelids normal Sclerae: sclerae normal EOM: EOMs intact bilaterally Neck Neck: Yes normal visual inspection and Yes no lymphadenopathy Lymphatic: no lymphadenopathy noted Chest Chest palpation & inspection: normal inspection of the chest Resp Effort & Inspection: normal respiratory effort, able to speak in complete sentences, no audible wheezes, no cough, no stridor, not tachypneic, no tripod positioning and no use of accessory muscles Auscultation: no crackles, no wheezes and diminished lung sounds Cardio Jugular venous distension: no JVD Rate: regular rate Rhythm: regular rhythm Skin Other: warm, dry General skin exam: no rashes or lesions noted Neuro General: patient oriented x3 Cranial nerves: Yes Normal hearing present Cognition (Neuro): normal cognition Gait exam (Neuro): Normal gait present Extrem General: Yes normal to inspection, Yes capillary refill normal, Yes no clubbing, cyanosis or edema and Yes no pedal edema Psych Appearance: grossly normal and well kempt Speech and movement: Normal speech and movement present and Clear speech present Affect: normal affect Attitude: cooperative Thought process: Normal thought process present Thought content: Normal thought content present Insight: Good insight present (Psych) Judgement: Good judgement present (Psych) Assessment & Plan Assessment & Plan (1) COPD (chronic obstructive pulmonary disease): Code(s): J44.9 - Chronic obstructive pulmonary disease, unspecified (2) Cough: Code(s): R05.9 - Cough, unspecified (3) Nicotine dependence, cigarettes, uncomplicated: Code(s): F17.210 - Nicotine dependence, cigarettes, uncomplicated (4) Asbestos exposure: Code(s): Z77.090 - Contact with and (suspected) exposure to asbestos Plan Reviewed PFT which revealed a moderate obstructive ventilatory defect with no bronchodilator response and increased total lung capacity suggestive of hyperinflation. Discussed trialing a daily inhaler, will send in Breo. Inhaler technique and importance of good oral hygiene reviewed. Will attempt to resend chest CT order as patient with asbestos exposure as well as smoking history, and chronic cough. All questions were answered and patient is in agreement of plan. Will follow-up to review results and response to inhaler. Coding Level of Care Code Est Pt Level 4 (95325) Diagnoses COPD (chronic obstructive pulmonary disease) J44.9 Cough R05.9 Nicotine dependence, cigarettes, uncomplicated F17.210 Asbestos exposure Z77.090
== END 2023-12-11 15:40 | disposition home or self-care (01) ==
PROVIDERS: PCP Internal Medicine; Visit Provider Nurse Practitioner Family
DX: J44.9 Chronic obstructive pulmonary disease, unspecified (principal); R05.9 Cough, unspecified; F17.210 Nicotine dependence, cigarettes, uncomplicated; Z77.090 Contact with and (suspected) exposure to asbestos
CPT/HCPCS: 99214

== ENCOUNTER → 2023-12-11 14:51 | Outpatient (BNVA) | payer MEDICARE, SELFPAY | PROVIDERS: PCP Internal Medicine; Visit Provider Nurse Practitioner Family | DX: J44.9 Chronic obstructive pulmonary disease, unspecified (principal); R05.9 Cough, unspecified; F17.210 Nicotine dependence, cigarettes, uncomplicated; Z77.090 Contact with and (suspected) exposure to asbestos | CPT/HCPCS: 99212 ==

== ENCOUNTER 2024-02-26 10:26 | Outpatient (REF) | payer MEDICARE, SELFPAY ==
--- NOTE | ~2024-02-26 | XR_ITS ---
EXAMINATION: XR CHEST CLINICAL INFORMATION: Reason for Exam chronic cough COMPARISON: None TECHNIQUE: 2 views of the chest FINDINGS: Lines and tubes: Median sternotomy wires and mediastinal surgical clips. Clear lungs. Trace bilateral pleural effusions. No pneumothorax. Normal cardiomediastinal silhouette. Atherosclerotic vascular calcification in the left upper quadrant. Remote-appearing left rib fracture deformities. XR/XR chest 2V IMPRESSION: 1. Clear lungs. Trace bilateral pleural effusions.
== END 2024-02-26 10:27 | disposition home or self-care (01) ==
LOC: HO.XRAY 10:26
PROVIDERS: Visit Provider Internal Medicine
DX: R05.2 Subacute cough (principal)
CPT/HCPCS: 71046

== ENCOUNTER 2024-03-06 09:09 | Outpatient (REF) | payer MEDICARE, SELFPAY ==
[2024-03-06 14:38] LABS: Alanine Aminotransferase 16 U/L (0-40); Alkaline Phosphatase 109 U/L (39-117); Anion Gap 11 (12-20); Aspartate Amino Transferase 17 U/L (5-37); Bilirubin Total 0.6 mg/dL (0.0-1.0); Blood Urea Nitrogen 32 mg/dL (9-16); Calcium 9.5 mg/dL (8.4-10.2); Carbon Dioxide 32 mmol/L (22-29); Chloride 100 mmol/L (96-108); Cholesterol 196 mg/dL (<200); Estimated Glomerular Filt Rate 29; Glucose Random 109 mg/dL (60-115); HDL Cholesterol 32 mg/dL (>40); LDL Cholesterol Calculated 147 mg/dL (<100); Potassium 4.4 mmol/L (3.3-5.1); Sodium 139 mmol/L (135-145); Total Protein 7.3 g/dL (6.5-8.0); Triglycerides 87 mg/dL (<150)
== END 2024-03-06 09:10 | disposition home or self-care (01) ==
LOC: HO.CHCLDS 09:09
PROVIDERS: Visit Provider Internal Medicine
DX: E78.2 Mixed hyperlipidemia (principal)
CPT/HCPCS: 36415; 80053; 80061

== ENCOUNTER 2024-04-01 15:57 | Outpatient (AMB) | payer MEDICARE, SELFPAY ==
--- NOTE | 2024-04-01 15:58 | MHC.OFFVIS ---
Vital Signs 04/01/24 15:59 Height 5 ft 9 in Weight 162 lb 0.636 oz BMI 23.9 BP 130/82 Blood Pressure Location Rt brachial Position Sitting Pulse 56 Pulse Source Pulse Oximeter Pulse Oximetry (%) 98 Oxygen Delivery Method Room Air Intake Visit Reasons: Chronic Bronchitis Allergies acetaminophen [From Tylenol] Adverse Reaction (Severe, Verified 04/01/24 16:01) Difficulty Breathing HPI HPI Chronic Bronchitis: Details: Migue is a pleasant 78-year-old male, current minimal smoker with 30+ pyh, with underlying COPD, atrial fibrillation on anticoagulation and coronary artery disease status post CABG x5. He previously reported decreased exercise capacity and dry cough, however denies any respiratory symptoms since the last visit. In the past he was prescribed Spiriva as well as Breo however both cost over $400 and was not financially feasible. Given patient with significant smoking history and exposure to asbestos a chest CT was ordered but unfortunately denied by insurance. An appeal letter was sent to [facility], patient aware of this. Recent CXR revealed trace bilateral effusions, report below. He denies any visits to urgent care or hospitalizations since the last visit. [facility] Medical History Internal carotid artery stent present PVD (peripheral vascular disease) CVA (cerebral vascular accident) Surgical History S/P CABG x 5 Family History Mother No problems noted. Father No problems noted. Social History (Updated 04/01/24 @ 16:01 by Chrissy Redman [facility]) Alcohol intake: former Year quit: 2021 Patient Tobacco Use Status: Current someday Tobacco user Tobacco use type: Cigarette Cigarettes Per Day: 5 Review of Systems Const Denies chills, Denies excessive sweating, Denies fever(s), Denies headache(s) and Denies night sweats Eyes Denies dry eyes, Denies irritation and Denies itchy eyes ENT Reports Normal hearing present, Denies headache(s), Denies nasal congestion, Denies nasal discharge, Denies post nasal drip and Denies sore throat Card Denies chest pain, Denies chest pain at rest, Denies chest pain with activity, Denies claudication, Denies leg edema, Denies orthopnea and Denies paroxysmal nocturnal dyspnea Resp Denies chest congestion, Denies cough, Denies excessive phlegm production, Denies pain on inspiration, Denies pain with cough, Denies stridor and Denies wheezing Musc Denies myalgias Neuro Reports Normal hearing present and Denies headache(s) Endo Denies excessive sweating Sawyer/Lymph Denies lymphadenopathy Aller/Immun Denies itchy eyes, Denies seasonal rhinorrhea and Denies wheezing Physical Exam Vital Signs: Last Vital Signs Pulse 56 04/01/24 15:59 BP 130/82 04/01/24 15:59 Pulse Ox 98 04/01/24 15:59 Oxygen Delivery Method Room Air 04/01/24 15:59 BMI result Body Mass Index 23.9 Const General: cooperative, healthy appearing, comfortable, no acute distress, well developed and alert Orientation/consciousness: patient oriented x3 Limitations: no limitations HEENT Head: Yes normal to inspection, Yes normocephalic and Yes atraumatic Ears: hearing grossly normal bilaterally and external ears normal Eyes General: appearance normal, both eyes and all related structures Eyelids: Yes eyelids normal Sclerae: sclerae normal EOM: EOMs intact bilaterally Neck Neck: Yes normal visual inspection and Yes no lymphadenopathy Lymphatic: no lymphadenopathy noted Chest Chest palpation & inspection: normal inspection of the chest Resp Effort & Inspection: normal respiratory effort, able to speak in complete sentences, no audible wheezes, no cough, no stridor, not tachypneic, no tripod positioning and no use of accessory muscles Auscultation: no crackles, no wheezes and diminished lung sounds Cardio Jugular venous distension: no JVD Rate: regular rate Rhythm: regular rhythm Skin Other: warm, dry General skin exam: no rashes or lesions noted Neuro General: patient oriented x3 Cranial nerves: Yes Normal hearing present Cognition (Neuro): normal cognition Gait exam (Neuro): Normal gait present Extrem General: Yes normal to inspection, Yes capillary refill normal, Yes no clubbing, cyanosis or edema and Yes no pedal edema Psych Appearance: grossly normal and well kempt Speech and movement: Normal speech and movement present and Clear speech present Affect: normal affect Attitude: cooperative Thought process: Normal thought process present Thought content: Normal thought content present Insight: Good insight present (Psych) Judgement: Good judgement present (Psych) Results Reviewed Results Reviewed: [address] [address] XRay Report Signed Patient: Migue Wilson MR#: [id number] : 1945 Acct:[id number] Age/Sex: 78 / M ADM Date: 02/26/24 Loc: HO.XRAY Attending Dr: Thomas Macario MD Ordering Physician: Thomas Paredes MD Date of Service: 02/26/24 Procedure(s): XR chest 2V Accession Number(s): [id number] cc: Thomas Paredes MD~ EXAMINATION: XR CHEST CLINICAL INFORMATION: Reason for Exam chronic cough COMPARISON: None TECHNIQUE: 2 views of the chest FINDINGS: Lines and tubes: Median sternotomy wires and mediastinal surgical clips. Clear lungs. Trace bilateral pleural effusions. No pneumothorax. Normal cardiomediastinal silhouette. Atherosclerotic vascular calcification in the left upper quadrant. Remote-appearing left rib fracture deformities. XR/XR chest 2V IMPRESSION: 1. Clear lungs. Trace bilateral pleural effusions. Dictated By: Marjorie Arechiga MD Signed By: <Electronically signed by Marjorie Arechiga MD in OV> 03/14/24 1351 DD/ 1046 TD/TT: Machine Repairer Maintenance: Assessment & Plan Assessment & Plan (1) COPD (chronic obstructive pulmonary disease): Code(s): J44.9 - Chronic obstructive pulmonary disease, unspecified Category: Medical (2) Cough: Code(s): R05.9 - Cough, unspecified Category: Medical (3) Nicotine dependence, cigarettes, uncomplicated: Code(s): F17.210 - Nicotine dependence, cigarettes, uncomplicated Category: Medical (4) Asbestos exposure: Code(s): Z77.090 - Contact with and (suspected) exposure to asbestos Category: Medical Plan At this time Migue feels respiratory symptoms are controlled. Patient aware if symptoms change to call the office. Otherwise awaiting chest CT approval after recent appeal letter sent to [facility]. All questions were answered and patient is in agreement of plan. Will follow-up to review results or sooner if needed. Coding Level of Care Code Est Pt Level 3 (53339) Diagnoses COPD (chronic obstructive pulmonary disease) J44.9 Cough R05.9 Nicotine dependence, cigarettes, uncomplicated F17.210 Asbestos exposure Z77.090
[2024-04-01 15:59] VITALS: BP 130/82; PULSE 56; O2SAT 98; BMI 23.9
== END 2024-04-01 16:19 | disposition home or self-care (01) ==
PROVIDERS: PCP Internal Medicine; Visit Provider Nurse Practitioner Family
DX: J44.9 Chronic obstructive pulmonary disease, unspecified (principal); R05.9 Cough, unspecified; F17.210 Nicotine dependence, cigarettes, uncomplicated; Z77.090 Contact with and (suspected) exposure to asbestos
CPT/HCPCS: 99213

== ENCOUNTER → 2024-04-01 15:57 | Outpatient (BNVA) | payer MEDICARE, SELFPAY | PROVIDERS: PCP Internal Medicine; Visit Provider Nurse Practitioner Family | DX: J44.9 Chronic obstructive pulmonary disease, unspecified (principal); R05.9 Cough, unspecified; F17.210 Nicotine dependence, cigarettes, uncomplicated; Z77.090 Contact with and (suspected) exposure to asbestos | CPT/HCPCS: 99212 ==

== ENCOUNTER 2024-06-11 13:09 | Outpatient (AMB) | payer MEDICARE, SELFPAY ==
[2024-06-11 13:14] VITALS: BP 120/72; PULSE 68; BMI 23.8
--- NOTE | 2024-06-11 13:14 | MHC.OFFVIS ---
Vital Signs 06/11/24 13:14 Height 5 ft 9 in Weight 160 lb 14.999 oz BMI 23.8 BP 120/72 Blood Pressure Location Lt brachial Position Sitting Pulse 68 Intake Visit Reasons: 6m follow up Intake Note: 6 month follow-up with ekg feeling good Shipping And Receiving Specialist Required: No Allergies acetaminophen [From Tylenol] Adverse Reaction (Severe, Verified 04/01/24 16:01) Difficulty Breathing Medication List - Last Reconciled 06/11/24 by Timmy Sebastian MD allopurinol 100 mg PO DAILY amlodipine 5 mg PO DAILY apixaban (Eliquis) 5 mg PO BID atorvastatin 40 mg PO BEDTIME cholecalciferol (vitamin D3) 50 mcg PO DAILY cilostazol 50 mg PO BID fluticasone furoate-vilanterol 100-25 mcg/dose (Breo Ellipta) 1 inh inhalation DAILY metoprolol tartrate 25 mg PO BID pantoprazole 40 mg PO DAILY torsemide 20 mg PO ONCE HPI Comments Details: Migue comes for follow-up. He said he has been doing well overall from cardiac perspective. Remains active. He is able to do everything he wants to do without any new symptoms. Denies any exertional chest pain or shortness of breath. Denies any orthopnea, PND, leg edema. No clear claudication sounding symptoms. No bleeding issues or neurologic events. Continues to have weakness in his left arm which has remained stable. No prolonged palpitation irregular heartbeat. No lightheadedness, syncope. [facility] Medical History Internal carotid artery stent present PVD (peripheral vascular disease) CVA (cerebral vascular accident) Surgical History S/P CABG x 5 Family History Mother No problems noted. Father No problems noted. Social History Alcohol intake: former Year quit: 2021 Patient Tobacco Use Status: Current someday Tobacco user Tobacco use type: Cigarette Cigarettes Per Day: 5 Review of Systems Const Denies chills, Denies fatigue, Denies fever(s), Denies frequent falls, Denies weakness, Denies weight gain and Denies weight loss ENT Denies dizziness Card Denies chest pain, Denies leg edema, Denies lightheadedness, Denies palpitations, Denies dyspnea, Denies dyspnea on exertion, Denies orthopnea and Denies other (loss of consciousness) Resp Denies cough, Denies dyspnea and Denies dyspnea on exertion GI Denies hematochezia and Denies change in stool character Musc Denies abnormal gait, Denies muscle weakness, Denies numbness, Denies radiating pain into limb and Denies tingling Neuro Denies Abnormal speech present, Denies abnormal gait, Denies dizziness, Denies frequent falls, Denies numbness, Denies tingling and Denies weakness Endo Denies fatigue and Denies palpitations Physical Exam Vital Signs: Last Vital Signs Pulse 68 06/11/24 13:14 BP 120/72 06/11/24 13:14 BMI result Body Mass Index 23.8 Const General: cooperative, comfortable, no acute distress, alert, awake, Physically active and well groomed Nutritional Appearance: thin Orientation/consciousness: patient oriented x3 Limitations: no limitations HEENT Head: Yes normocephalic and Yes atraumatic Neck Neck: Yes trachea midline, Yes supple and Yes no JVD Carotids: no bruits Chest Chest palpation & inspection: other ( Well-healed sternotomy scar) Resp Effort & Inspection: normal respiratory effort Auscultation: clear to auscultation bilaterally and diminished lung sounds Cardio Jugular venous distension: no JVD Rate: regular rate Rhythm: abnormal rhythm irregularly irregular Heart sounds: S1 normal heart sound present, S2 normal heart sound present, no click, no gallops and no murmurs Skin General skin exam: no rashes or lesions noted and ecchymosis Neuro General: patient oriented x3 and no focal motor deficits Speech: No Abnormal speech present Extrem General: Yes no clubbing, cyanosis or edema Office Procedures EKG Details: EKG shows atrial fibrillation with possible inferior infarct [id number], Complete Assessment & Plan Assessment & Plan (1) Persistent atrial fibrillation: Code(s): I48.19 - Other persistent atrial fibrillation Category: Medical Plan: Persistent rate control atrial fibrillation. Clinically without any symptoms. Rate is adequately controlled. No signs or symptoms of heart failure. Continue current rate control strategy. Continue full oral anticoagulation, currently on apixaban 5 mg b.i.d.. Semi annual renal function test should be pursued. No indication for rhythm control approach at this point time. Follow-up echocardiogram in 1 year's time. (2) CAD (coronary artery disease): Code(s): I25.10 - Atherosclerotic heart disease of [place] coronary artery without angina pectoris Category: Medical Plan: Diffuse and significant atherosclerosis with prior coronary artery bypass grafting. No current symptoms of angina. Myocardial perfusion imaging last year showed mild basal inferior inferolateral ischemia. Echocardiogram shows low normal LVEF. Follow-up echocardiogram next year. Continue aggressive risk factor modification. Complete smoking cessation was advised. Currently on full oral anticoagulation with apixaban and therefore would avoid aspirin therapy. Continue high-intensity statin therapy. Target goal LDL less than 70 mg/dL. Continue aggressive blood pressure control which is currently well optimized. Diffuse atherosclerotic disease. Advise ultrasound of carotid arteries as well as lower extremity as he has lost follow-up with vascular surgery. Follow up in the clinic otherwise in 1 year's time, sooner p.r.n.. Thank you for allowing me to partake in his care Orders: Orders US carotid duplex BI 1 Year I65.23 - Occlusion and stenosis of bilateral carotid arteries CA echo transthoracic complete 1 Year I48.19 - Other persistent atrial fibrillation US arterial duplex LE BI Today I73.9 - Peripheral vascular disease, unspecified Coding Level of Care Code Est Pt Level 4 (80413) Complex EM visit Add On G2211 Diagnoses Persistent atrial fibrillation I48.19 CAD (coronary artery disease) I25.10 CPT Codes EKG - CPT: 57514-[id number], Complete ([id number])
== END 2024-06-11 13:41 | disposition home or self-care (01) ==
PROVIDERS: PCP Internal Medicine; Visit Provider Internal Medicine Cardiovascular Disease
DX: I48.19 Other persistent atrial fibrillation (principal); I25.10 Atherosclerotic heart disease of native coronary artery without angina pectoris
CPT/HCPCS: 93010; 99214; G2211

== ENCOUNTER → 2024-06-11 13:09 | Outpatient (BNVA) | payer MEDICARE, SELFPAY | PROVIDERS: PCP Internal Medicine; Visit Provider Internal Medicine Cardiovascular Disease | DX: I48.19 Other persistent atrial fibrillation (principal); I25.10 Atherosclerotic heart disease of native coronary artery without angina pectoris; R94.31 Abnormal electrocardiogram [ECG] [EKG] | CPT/HCPCS: 93005; 99212 ==

== ENCOUNTER 2024-06-27 14:57 | Outpatient (REF) | payer MEDICARE, SELFPAY ==
--- NOTE | ~2024-06-27 | US_ITS ---
EXAMINATION: Noninvasive assessment of the bilateral lower extremities with ARTERIAL DUPLEX CLINICAL INFORMATION: Peripheral vascular disease TECHNIQUE: Duplex Doppler techniques with waveform analysis and measurement of velocities in the bilateral common femoral, profunda femoris, superficial femoral, popliteal and tibial arteries were performed. COMPARISON: 03/17/2020 FINDINGS: DIRECT DUPLEX DOPPLER FINDINGS: RIGHT LEG: Common femoral artery: 105 cm/s, phasicity: Biphasic Profunda femoris artery: 55.3, phasicity: Biphasic Superficial femoral artery (proximal): 59.1 cm/s, phasicity: Biphasic Superficial femoral artery (mid): 32.4 cm/s, phasicity: Biphasic Superficial femoral artery (distal): 18.6 cm/s, phasicity: Monophasic Popliteal artery: 13.4 cm/s proximally, phasicity: Monophasic. The distal popliteal artery is occluded Posterior tibial artery: Occluded Peroneal artery: 34.1 cm/s, phasicity: Monophasic Anterior tibial artery: 16.7 cm/s, phasicity: Monophasic Dorsalis pedis artery: 18.2 cm/s, phasicity:Monophasic LEFT LEG: Femorofemoral, [id number] bypass graft is patent on color flow. Biphasic waveforms seen throughout the bypass graft with normal velocities ranging from 73.7 to 123 cm/s. Velocity at the right common femoral artery anastomosis measures 215 cm/s. Velocity at the left common femoral artery anastomosis measures 196 cm/s. Common femoral artery: 138 cm/s, phasicity: Biphasic Profunda femoris artery: 97.1 cm/s, phasicity: Monophasic Superficial femoral artery (proximal): 49.0 cm/s, phasicity: Biphasic Superficial femoral artery (mid): 64.9 cm/s, phasicity: Biphasic Superficial femoral artery (distal): 151 cm/s, phasicity: Monophasic Popliteal artery: 25.8 cm/s, phasicity: Biphasic Posterior tibial artery: 23.3 cm/s, phasicity: Monophasic Peroneal artery: Occluded Anterior tibial artery: 15.1 cm/s, phasicity: Monophasic Dorsalis pedis artery: 21.3 cm/s, phasicity: Monophasic US/US arterial duplex LE BI IMPRESSION: Femorofemoral bypass graft is widely patent. Right leg: Occlusion of the distal right popliteal artery and posterior tibial artery. Reconstituted flow in the peroneal and anterior tibial artery with dampened waveforms Left leg: Elevated velocity in the distal superficial femoral artery consistent with moderate stenosis with dampened waveforms in the popliteal and below-knee runoff vessels. The peroneal artery is occluded Electronically signed by: Aaron Urbina MD 06/28/2024 09:19 AM EDT
== END 2024-06-27 14:58 | disposition home or self-care (01) ==
LOC: HO.US 14:57
PROVIDERS: PCP Internal Medicine; Visit Provider Internal Medicine Cardiovascular Disease
DX: I73.9 Peripheral vascular disease, unspecified (principal)
CPT/HCPCS: 93925

== ENCOUNTER → 2025-06-04 13:53 | Outpatient (REF) | payer MEDICARE, SELFPAY ==
--- NOTE | ~2025-06-04 | US_ITS ---
EXAMINATION: BILATERAL CAROTID ULTRASOUND WITH DOPPLER HISTORY: I65.23 - Occlusion and stenosis of bilateral carotid arteries COMPARISON: Comparison is made with the prior examination dated 11/08/2022. TECHNIQUE: Real time and Color and Spectral doppler ultrasonography of the carotid and vertebral arteries was performed in multiple planes. FINDINGS: No significant plaque is identified. An arrhythmia is identified. VERTEBRAL FLOW DIRECTION: Antegrade bilaterally. PEAK SYSTOLIC VELOCITIES (in cm/sec): RIGHT: CCA: Prox: 49 Dist: 37 ICA: Prox: 58 Mid: 81 Dist: 69 ICA/CCA Ratio: 1.18 ECA: 172 Peak ICA end diastolic velocity (EDV): 22 LEFT: CCA: Prox: 69 Dist: 45 ICA: Prox: 64 Mid: 79 Dist: 65 ICA/CCA Ratio: 0.93 ECA: 129 Peak ICA end diastolic velocity (EDV): 28 US/US carotid duplex BI IMPRESSION: No significant stenosis is identified. Electronically signed by: Jonathon Boo MD 06/04/2025 02:43 PM EDT
--- OUTSIDE RECORDS SUMMARY | 2025-06-04 15:09 | XMS_ITS | Encounter Summary ---
Author Organization [employer] Address [address] [place] [address] Care Team Providers Care Metallic Yarn Slitting Machine Operator Name Role Phone Thomas Paredes MD Primary Care Prov ider Encounter Details Date Type Department Care Team (Late st Contact Info) Description 06/04/2025 Orders Only [facility] External Provider, [facility] Social History Tobacco Use Types Packs/Day Years Used Date Smoking Tobacco: Every Day Cigarettes 0.3 0.5 Passive Smoke Exposure: Current Smokeless Tobacco: Never Alcohol Use Standard Drinks/Week Comments Never 0 (1 standard drink = 0.6 oz pur e alcohol) Depression Answer Date Recorded Patient Health Questionnaire-9 Score 0 03/05/2024 Patient Health Questionnaire-9 Score 0 03/05/2024 Last PHQ-9: Questionnaire Data Not on file 0 03/05/2024 Housing Stability Answer Date Recorded What is your housing situation today? I have rakesh nelson 03/05/[address] you li ve. Do you have problems with any of the following? None of the above 03/05/2024 Food Insecurity Answer Date Recorded Within the past 12 months, y ou worried that your food would run out before you got money to buy more: Never True 03/05/2024 Within the past 12 months,th e food you bought just didn't last and you didn't have enough money to get more: Never True 10/2023 Transportation Answer Date Recorded In the past 12 months, has l ack of transportation kept you from medical appts, meetings, work or from getting things needed for daily living? No 03/05/2024 Utilities Answer Date Recorded In the past 12 months, has t he electric, gas, oil or water company threatened to shut off services in your home? No 03/05/2024 Depression Answer Date Recorded Patient Health Questionnaire-2 Score 0 03/05/2024 Internet Access Answer Date Recorded Internet Access Q1 Yes 05/06/2024 Internet Access Q2 Not on file 05/06/2024 Sex and Gender Information Value Date Recorded Sex Assigned at Male 07/04/2022 10:37 AM EDT Legal Sex Male 10:37 AM EDT Gender Identity Male 07/04/2022 10:37 AM EDT Sexual Orientation Straight 07/04/2022 10 :37 AM EDT documented as of this encounter Plan of Treatment Not on file documented as of this encounter Procedures Procedure Name Priority Date/Time Associated Diagnosis Comments [facility] US CAROTID ARTERY DUPLEX BILATERAL Routine 06/04/2025 2:05 PM EDT documented in this encounter Results * [facility] US Carotid Artery Duplex Bilateral (06/04/2025 2:05 PM EDT) 06/04/2025 2:05 PM EDT Narrative [facility] - 06/04/2025 2:46 PM EDT [place] [address] Ultrasound Report Signed Patient: Migue Wilson MR#: [id number] : 1945 Acct:[id number] Age/Sex: 79 / M ADM Date: 06/04/25 Loc: [facility] Attending Dr: Timmy Sebastian MD Ordering Physician: Timmy Sebastian MD Date of Service: 06/04/25 Procedure(s): US carotid duplex BI Accession Number(s): [id number] cc: Thomas Paredes MD; Timmy Sebastian MD Reason for Exam: I65.23 - Occlusion and stenosis of bilateral carotid arteries EXAMINATION: BILATERAL CAROTID ULTRASOUND WITH DOPPLER HISTORY: I65.23 - Occlusion and stenosis of bilateral carotid arteries COMPARISON: Comparison is made with the prior examination dated 11/08/2022. TECHNIQUE: Real time and Color and Spectral doppler ultrasonography of the carotid and vertebral arteries was performed in multiple planes. FINDINGS: No significant plaque is identified. An arrhythmia is identified. VERTEBRAL FLOW DIRECTION: Antegrade bilaterally. PEAK SYSTOLIC VELOCITIES (in cm/sec): RIGHT: CCA: Prox: 49 Dist: 37 ICA: Prox: 58 Mid: 81 Dist: 69 ICA/CCA Ratio: 1.18 ECA: 172 Peak ICA end diastolic velocity (EDV): 22 LEFT: CCA: Prox: 69 Dist: 45 ICA: Prox: 64 Mid: 79 Dist: 65 ICA/CCA Ratio: 0.93 ECA: 129 Peak ICA end diastolic velocity (EDV): 28 US/US carotid duplex BI IMPRESSION: No significant stenosis is identified. Electronically signed by: Jonathon Boo MD 06/04/2025 02:43 PM EDT RP Dictated By: Jonathon Boo MD Signed By: <Electronically signed by Jonathon Boo MD in OV> 06/04/25 1443 DD/ 1405 TD/TT: 06/04/25 1415 Aquatic Instructor: Procedure Note Donotuseinterpreter, Image - 06/04/2025 [place] [address] Ultrasound Report Signed Patient: Migue Wilson RMR#: [id number] : 1945cct:[id number] Age/Sex: 79 / MADM Date: 06/04/25 Loc: [facility] Attending Dr: Timmy Sebastian MD Ordering Physician: Timmy Sebastian MD Date of Service: 06/04/25 Procedure(s): US carotid duplex BI Accession Number(s): [id number] cc: Thomas Paredes MD; Timmy Sebastian MD Reason for Exam: I65.23 - Occlusion and stenosis of bilateral carotidarteries EXAMINATION: BILATERAL CAROTID ULTRASOUND WITH DOPPLER HISTORY: I65.23 - Occlusion and stenosis of bilateral carotid arteries COMPARISON: Comparison is made with the prior examination dated 11/08/2022. TECHNIQUE: Real time and Color and Spectral doppler ultrasonography of the carotid and vertebral arteries was performed in multiple planes. FINDINGS: No significant plaque is identified. An arrhythmia is identified. VERTEBRAL FLOW DIRECTION: Antegrade bilaterally. PEAK SYSTOLIC VELOCITIES (in cm/sec): RIGHT: CCA: Prox: 49 Dist: 37 ICA: Prox: 58 Mid: 81 Dist: 69 ICA/CCA Ratio: 1.18 ECA: 172 Peak ICA end diastolic velocity (EDV): 22 LEFT: CCA: Prox: 69 Dist: 45 ICA: Prox: 64 Mid: 79 Dist: 65 ICA/CCA Ratio: 0.93 ECA: 129 Peak ICA end diastolic velocity (EDV): 28 US/US carotid duplex BI IMPRESSION: No significant stenosis is identified. Electronically signed by: Jonathon Boo MD 06/04/2025 02:43 PM EDT RP Dictated By: Jonathon Boo MD Signed By: <Electronically signed by Jonathon Boo MD in OV> 06/04/25 1443 DD/ 1405 TD/TT: 06/04/25 1415 Aquatic Instructor: us [facility] External Provider CV VASC ULAR PROCEDURES Final Result [facility] [address] [place] [address] documented in this encounter Visit Diagnoses Not on filedocumented in this encounter Additional Health Concerns Assessment Noted Time PHQ-9 Depression Total Score: 0 03/05/20 24 2:43 PM EDT documented as of this encounter Care Teams Metallic Yarn Slitting Machine Operator Relationship Specialty Start Date End Date Thomas Paredes MD [address] [place] [id number] PCP - General Internal Medicine 02/27/20 documented as of this encounter
--- OUTSIDE RECORDS SUMMARY | 2025-06-04 15:09 | XMS_ITS | Encounter Summary ---
Author Organization [employer] Address [address] [facility] 7 [place] [address] Care Team Providers Care Glazier Structural Glass Name Role Phone Thomas Paredes MD Primary Care Prov ider Reason for Visit * Reason Comments Med Change Request Encounter Details Date Type Department Care Team ([facility] Contact Info) Description 09/19/2023 Refill [facility] [address] [place], [place] [phone] Thomas Paredes MD [address] [place] [address] Social History Tobacco Use Types Packs/Day Years Used Date Smoking Tobacco: Every Day Cigarettes 0.3 0.5 Passive Smoke Exposure: Current Smokeless Tobacco: Never Alcohol Use Standard Drinks/Week Comments Never 0 (1 standard drink = 0.6 oz pur e alcohol) Depression Answer Date Recorded Patient Health Questionnaire-9 Score 0 12/09/2022 Housing Stability Answer Date Recorded What is your housing situation today? I have rakesh nelson 06/21/[address] you li ve. Do you have problems with any of the following? None of the above 06/21/2023 Food Insecurity Answer Date Recorded Within the past 12 months, y ou worried that your food would run out before you got money to buy more: Never True 06/21/2023 Within the past 12 months,th e food you bought just didn't last and you didn't have enough money to get more: Never True Transportation Answer Date Recorded In the past 12 months, has l ack of transportation kept you from medical appts, meetings, work or from getting things needed for daily living? No 06/21/2023 Utilities Answer Date Recorded In the past 12 months, has t he electric, gas, oil or water company threatened to shut off services in your home? No 06/21/2023 Depression Answer Date Recorded Patient Health Questionnaire-2 Score 0 12/09/2022 Sex and Gender Information Value Date Recorded Sex Assigned at Male 07/04/2022 10:37 AM EDT Legal Sex Male 10:37 AM EDT Gender Identity Male 07/04/2022 10:37 AM EDT Sexual Orientation Straight 07/04/2022 10 :37 AM EDT documented as of this encounter Miscellaneous Notes * Telephone Encounter - Thomas Macario MD - 09/20/2023 8:29 PM EST Incruse ellippta sent documented in this encounter Plan of Treatment Not on file documented as of this encounter Visit Diagnoses Not on filedocumented in this encounter Additional Health Concerns Assessment Noted Time PHQ-9 Depression Total Score: 0 12/10/19 23 11:05 AM EDT documented as of this encounter Care Teams Glazier Structural Glass Relationship Specialty Start Date End Date Thomas Paredes MD [address] [place] [id number] PCP - General Internal Medicine 02/27/20 documented as of this encounter
--- OUTSIDE RECORDS SUMMARY | 2025-06-04 15:09 | XMS_ITS | Encounter Summary ---
Author Organization [employer] Address 75 [facility] 7 [place] [address] Care Team Providers Care Personnel Training Officer Name Role Phone Thomas Paredes MD Primary Care Prov ider Reason for Visit * Reason Comments Med Change Request Encounter Details Date Type Department Care Team ([facility] Contact Info) Description 09/12/2023 Refill [facility] [address] [place], [place] [phone] Thomas Paredes MD [address] [place] [address] Social History Tobacco Use Types Packs/Day Years [...] Telephone Encounter - Thomas Macario MD - 09/14/2023 1:02 PM EST Changed to incruse documented in this encounter Plan of Treatment Not on file documented as of this encounter Visit Diagnoses Not on filedocumented in this encounter Additional Health Concerns Assessment Noted Time PHQ-9 Depression Total Score: 0 12/10/19 23 11:05 AM EDT documented as of this encounter Care Teams Personnel Training Officer Relationship Specialty Start Date End Date Thomas Paredes MD [address] [place] [id number] PCP - General Internal Medicine 02/27/20 documented as of this encounter
--- OUTSIDE RECORDS SUMMARY | 2025-06-04 15:09 | XMS_ITS | Clinical Summary ---
Author Organization [facility] Address [address] [facility] [address] [place] [address] Phone Care Team Providers Care Braid Folder Name Role Phone ErendiraThomas Primary Care Provider Allergies Active Allergy Reactions Criticality Noted Date Comments Acetaminophen Other (see comments),Hives 02/27/2020 Other reaction(s): Edema of throat, Other (see comments) Medications cholecalciferol (VITAMIN D-3) 25 MCG (1000 UT) capsule Take 1 capsule by mouth 1 (one) time each day Active metoprolol tartrate (LOPRESSOR) 25 MG tablet Take 1 tablet by mouth 2 (two) times a day Active pantoprazole (PROTONIX) 40 MG EC tablet Take 1 tablet by mouth 2 (two) times a day Active torsemide (DEMADEX) 20 MG tablet Take 2 tablets by mouth 1 (one) time each day Active allopurinol (ZYLOPRIM) 100 MG tablet 07/09/2021 Active Eliquis 5 MG tablet 12/07/2022 Active cilostazol (PLETAL) 50 MG tablet Take 50 mg by mouth in the morning and 50 mg in the evening. Active Active Problems Problem Noted Date Diagnosed Date Carotid artery stenosis 07/04/2022 Atrial arrhythmia 07/04/2022 Cerebrovascular accident 07/04/2022 Overview (07/04/2022): Multiple right hemispheric parasagittal watershed subacute infarcts. Chronic left cerebellar infarcts. Subtle supratentorial T2 hyperintense white matter lesions which most likely represent chronic microangiopathic/small vessel ischemic change. 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/2022 Pleural scarring 07/04/2022 Sinus bradycardia 07/04/2022 Anemia 02/08/2021 Chronic kidney disease 02/08/2021 Hypertensive disorder 02/08/2021 Hypertensive renal disease 02/08/2021 Iron deficiency anemia 02/08/2021 Peripheral vascular disease 02/08/2021 Paroxysmal supraventricular tachycardia 05/01/20 15 Overview (07/04/2022): SVT ablation on 05/01/2015 in [facility] by Dr Yehuda [place] Immunizations Immunization Administration Dates Next Due Influenza Split High Dose Preservative Free IM 1 Influenza, Unspecified 05/31/2020 Pneumococcal Conjugate 13-Valent 06/01/2020 Pneumococcal, Unspecified 06/22/2020 Family History Medical History Relation Comments Cancer Father Heart disease Father Cancer Mother Diabetes Mother Hypertension Mother Relation Status Comments Father Mother Social History Tobacco Use Types Packs/Day Years Used Date Smoking Tobacco: Former Cigarettes Smokeless Tobacco: Never Tobacco Cessation:Counseling Given: No Alcohol Use Standard Drinks/Week Comments Yes 0 (1 standard drink = 0.6 oz pure alcohol) Alcoholic Drinks/day: Occasional social drink Sex and Gender Information Value Date Recorded Sex Assigned at Not on file Legal Sex Male 4:58 PM EST Gender Identity Not on file Sexual Orientation Not on file Last Filed Vital Signs Vital Sign Reading Time Taken Comments Blood Pressure 110/60 01/02/2023 3:27 PM EDT Pulse 68 01/02/2023 3:27 PM EDT Temperature - - Respiratory Rate - - Oxygen Saturation 98% 01/02/2023 3:27 PM EDT Inhaled Oxygen Concentration - - Weight 73 kg (161 lb) 01/02/2023 3:27 PM EDT Height 177.8 cm (5' 10 ) 08/24/2020 12:00 PM EST Body Mass Index 23.1 08/24/2020 12:00 PM EST Plan of Treatment Health Maintenance Due Date Last Done Comments Pneumococcal Vaccine: 50+ Years (2 of 2 - PPSV23, PCV20, or PCV21) 08/17/2020 06/22/2020, 06/01/2020 Influenza Vaccine (#1) 2025 0, 05/31/2020 Pneumococcal Vaccine: Peds (0 to 5 Years) and At-Risk Patients (6 to 49 Years) Discontinued 06/22/2020, 06/01/2020 Hepatitis B Vaccine Aged Out No longe r eligible based on patient's age to complete this topic Insurance [facility] Care Teams Braid Folder Relationship Specialty Start Date End Date Thomas Krishna PCP - General Internal Medicine 08/09/21
--- OUTSIDE RECORDS SUMMARY | 2025-06-04 15:09 | XMS_ITS | Encounter Summary ---
Author Organization [employer] Address 75 [facility] 7t [place] [address] Care Team Providers Care Manager Product Design Name Role Phone Thomas Paredes MD Primary Care Prov ider Encounter Details Date Type Department Care Team ([facility] st Contact Info) Description 09/20/2023 Orders Only [facility] MED & PEDS 505 [place], [place] [phone] Thomas Paredes MD 505 [place], [place] [phone] Social History Tobacco Use Types Packs/Day Years [...] documented as of this encounter Care Teams Manager Product Design Relationship Specialty Start Date End Date Thomas Paredes MD [address] [place] [id number] PCP - General Internal Medicine 02/27/20 documented as of this encounter
--- OUTSIDE RECORDS SUMMARY | 2025-06-04 15:09 | XMS_ITS | Clinical Summary ---
Author Organization [employer] Address 75 [facility] 7t [place] [address] Care Team Providers Care Paper Machine Backtender Name Role Phone Thomas Paredes MD Primary Care Prov ider Allergies Active Allergy Reactions Criticality Noted Date Comments Acetaminophen Anaphylaxis,Hives High 02/27/2020 Other reaction(s): Edema of throat, Other (see comments) Medications atorvastatin (Lipitor) 40 MG tabletIndications:M ixed hyperlipidemia Take 1 tablet (40 mg) by mouth in the morning. 90 tablet 1 3 Active cilostazol (Pletal) 50 MG tablet Take 1 tablet by mouth 2 times daily. 1 Active Eliquis 5 MG tablet Take 1 tablet by mouth twice daily 3 Active bromfenac (Xibrom) 0.09 % solution eye drops INSTILL 1 DROP INTO RIGHT EYE ONCE DAILY FOR 14 WEEKS 3 Active aspirin 81 MG EC tablet Take 1 tablet by mouth in the morning. 3 Active tiotropium (Spiriva HandiHaler) [address] 1 capsule (18 mcg) into inhaler and inhale in the morning. 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, unspecified laterality TAKE 1 TABLET BY MOUTH IN THE MORNING 90 tablet 5 Active cholecalciferol VITAMIN D (Vitamin D-3) 50 MCG (1999 UT) tablet TAKE 1 TABLET BY MOUTH IN THE MORNING 90 tablet 5 Active amLODIPine (Norvasc) 5 MG tabletIndications:P rimary hypertension TAKE 1 TABLET BY MOUTH EVERY DAY 90 tablet 5 Active Active Problems Problem Noted Date Diagnosed Date Subacute cough 09/12/2023 Assessment & Plan (09/12/2023 2:27 PM EST): Xray finding discussed with patient, will renew guaifenesin/codeine Simple chronic bronchitis (CMS/HCC) 09/12/2023 Assessment & Plan (03/19/2024 8:48 AM EDT): Symptoms improved, follow up pneumology, for copd Assessment & Plan (03/10/2024 11:15 PM EDT): Cough resolved, followd by pneumology, no changes will be made Assessment & Plan (09/12/2023 2:28 PM EST): Will start on tiotropium and will refer to pulmonology Abdominal aortic aneurysm 07/24/20232022 Overview (07/24/2023): Feb 07, 2020 Entered By: HERIBERTO CHAHAL Comment: s/p EVAR 04/2018 Carotid artery disease 07/24/2023 3 Chronic ischemic heart disease 07/24/2023 1 09/23/2022 Overview (07/24/2023): Feb 07, 2020 Entered By: HERIBERTO CHAHAL Comment: s/p CABG Arteriosclerosis of coronary artery bypass graft 07/24/2023 07/24/2023 Overview (07/24/2023): Apr 16, 2018 Entered By: WILLA JOHNSON Comment: ??/??/2001 CABG ([place]): 5 Vessel, Anatomy unknownAug 2017 Entered By: WILLA JOHNSON Comment: ??/??/2015 Nuclear ([facility]): LVEF 57% Inferior Ischemia, Lateral InfarctAug 2017 Entered By: WILLA JOHNSON Comment: 11/04/2017 Echo: AF, LVH, LVEF ~ 45% History of endovascular sten t graft for abdominal aortic aneurysm (AAA) 07/24/2023 07/24/2023 Nonspecific (abnormal) findi ngs on radiological and other examination of lung field 07/24/2023 07/24/2023 Upper respiratory tract infection 07/24/2023 Assessment & Plan (07/24/2023 10:42 AM EST): Rap. COVID, Influenza A-B: Negative Patient that presented visit with complaints of URI symptoms will be prescribed Doxycycline and Robitussin to treat concern. Claudication of lower extremity 05/04/2023 07/24/2023 Atrial fibrillation with slo w ventricular response (CMS/HCC) 04/12/2023 Assessment & Plan (04/12/2023 1:06 PM EDT): Patient was undergoing a procedure on 04/07/23, while on recovery room he developed episode of asymptomatic bradycardia, he was told to hold metoprolol and to follow up with me Since last Monday patient has been off bb, has remained asymptomatic, hr was 63, told to continue metoprolol on hold and follow up with school guidance counselor for further reccomendations, in case of palpitation he might take half of the metoprolol Atrial fibrillation and flutter 07/04/2022 Assessment & Plan (09/02/2022 12:22 PM EST): Patient on aspirin and plavix due to intolerance for anticoagulation, lost follow up with school guidance counselor, he was being evaluated for a watchman, will place referal Hyperlipidemia 07/04/2022 Assessment & Plan (09/02/2022 12:26 PM EST): On atorvastatin, will order new labs for guidance of therapy Peripheral arterial occlusive disease 04/22/2021 Hypertensive disorder 02/08/2021 Assessment & Plan (03/19/2024 8:48 AM EDT): Controlled, keep low sodium diet, bp target <140/90 Assessment & Plan (03/10/2024 11:16 PM EDT): Controlled, no changes will be mad, continue low sodium diet and exercise as tolerated Assessment & Plan (12/09/2022 4:34 PM EDT): Controlled as per patient, usually below 140/90, followed by cardiology due to afib, no changes will be made, will place order for new labs Assessment & Plan (09/02/2022 12:20 PM EST): Patient not monitoring his bp, told to try to do it at the same time to create a habit, will place order for new labs for guidance, saw billboard erector about 2 months ago. Chronic kidney disease 02/08/2021 Assessment & Plan (09/02/2022 12:25 PM EST): Followed by nephrology, no changes made, will follow up recomendations Cerebrovascular accident (CV A) due to stenosis of right carotid artery 02/23/2016 07/24/2023 Left ventricular hypertrophy 01/14/2014 Overview (07/24/2023): Apr 16, 2018 Entered By: WILLA JOHNSON Comment: 01/14/2014 Echo ([place]): LVH 13 mm Encounters Date Type Department Care Team Description 06/04/2025 Orders Only [facility] External Provider, [facility] 04/25/2025 Refill [facility] MED & PEDS [address] [facility] [place] [address] Thomas Paredes MD Primary hypertension from Last 3 Months Immunizations Immunization Administration Dates Next Due Hep A, Adult 06/15/2021 Hep B, adult 10/15/2021,07/14/2021,06/15/2021 Influenza High-dose Quadriva lent Preservative Free 06/05/2023,08/30/2022,06/28/2022,06/03 Influenza injectable quadriv alent preservative free 07/05/2018 Influenza, High Dose Seasona l, Preservative Free 06/22/2020 Influenza, IIV3, injectable 08/30/2022,1 ,06/03/2021,05/31,07/08/2019 Influenza, Unspecified 06/04/2017,06/17/2014 Pneumococcal Conjugate PCV 13 06/01/2020, 017 Pneumococcal Polysaccharide PPSV23 05/02/2014 Pneumococcal, Unspecified 06/22/2020,05/02/2014 Tdap 07/05/2017 Social History Tobacco Use Types Packs/Day Years [...] Orientation Straight 07/04/2022 10 :37 AM EDT Last Filed Vital Signs Vital Sign Reading Time Taken Comments Blood Pressure 146/80 06/25/2024 11:11 AM EDT Pulse 68 06/25/2024 11:11 AM EDT Temperature 36.7 C (98 F) 06/25/2024 11:11 AM EDT Respiratory Rate 19 06/25/2024 11:11 AM EDT Oxygen Saturation 97% 06/25/2024 11:11 AM EDT Inhaled Oxygen Concentration - - Weight 74.8 kg (165 lb) 06/25/2024 11:11 AM EDT Height 167.6 cm (5' 6 ) 06/25/2024 11:11 AM EDT Body Mass Index 26.63 06/25/2024 11:11 AM EDT Plan of Treatment Health Maintenance Due Date Last Done Comments Derm Melanoma Skin Check 05/12/1946 Alcohol/Substance Use Screening 1955 Zoster Vaccines (1 of 2) 11/09/1993 RSV Patients and Patients Aged 60 years or older (1 - 1-dose 75+ series) 11/09/2018 Depression Screening 03/05/2025 03/05/2024, 03/05/20 24 SDOH Screening 03/05/2025 03/05/2024 COVID-19 Vaccine ( season) 2025 05/17/2024, 06/05/2023, 08/30/2022, Additional history exists Influenza Vaccine (#1) 2025 , 06/05/2023, 08/30/2022, Additional history exists Tobacco Screening 06/25/2025 06/25/2024 DTaP/Tdap/Td Vaccines (2 - Td or Tdap) 07/05/2027 07/05/2017 Lipid Panel 03/06/2029 03/06/2024, 10/10/2022, 12/12/2022, Additional history exists Pneumococcal Vaccine: 50+ Years Completed 06/22/2020, 06/01/2020, 07/05/2017, Additional history exists Hepatitis A Vaccines Aged Out 06/15/2021 No long er eligible based on patient's age to complete this topic Hepatitis B Vaccines Completed 10/15/2021, 07/14/2021, 06/15/2021 HIB Vaccines Aged Out No longer eligi ble based on patient's age to complete this topic HPV Vaccines Aged Out No longer eligi ble based on patient's age to complete this topic IPV Vaccines Aged Out No longer eligi ble based on patient's age to complete this topic Meningococcal B Vaccine Aged Out No l onger eligible based on patient's age to complete this topic Meningococcal Vaccine Aged Out No rocío kylee eligible based on patient's age to complete this topic RSV under 20 months Aged Out No longe r eligible based on patient's age to complete this topic Rotavirus Vaccines Aged Out No longer eligible based on patient's age to complete this topic Procedures Procedure Name Priority Date/Time Associated Diagnosis Comments [facility] US CAROTID ARTERY DUPLEX BILATERAL Routine 06/04/2025 2:05 PM EDT LIPID PANEL, STANDARD Routine 03/06/2024 9:16 AM EDT Mixed hyperlipidemia from Last 3 Months or Most Recently Relevant to Health Maintenance Results * [facility] US Carotid Artery Duplex Bilateral (06/04/2025 2:05 PM EDT) 06/04/2025 2:05 PM EDT Narrative [facility] - 06/04/2025 2:46 PM EDT [address] [address] Ultrasound Report Signed Patient: Migue Wilson MR#: [id number] : 1945 Acct:[id number] Age/Sex: 79 / M ADM Date: 06/04/25 Loc: TIM Attending Dr: Timmy Sebastian MD Ordering Physician: Timmy Sebastian MD Date of Service: 06/04/25 Procedure(s): US carotid duplex BI Accession Number(s): [id number] cc: Thomas Paredes MD; Timmy Sebastian MD [...] 06/04/25 1443 DD/ 1405 TD/TT: 06/04/25 1415 Carrier Driver: Procedure Note Donotuseinterpreter, Image - 06/04/[address] [address] Ultrasound Report Signed Patient: Migue Wilson RMR#: [id number] : 1945cct:[id number] Age/Sex: 79 / MADM Date: 06/04/25 Loc: HO.CARD Attending Dr: Timmy Sebastian MD Ordering Physician: Timmy Sebastian MD Date of Service: 06/04/25 Procedure(s): US carotid duplex BI Accession Number(s): [id number] cc: Thomas Paredes MD; Timmy Sebastian MD [...] 06/04/25 1443 DD/ 1405 TD/TT: 06/04/25 1415 Carrier Driver: us [facility] External Provider CV VASC ULAR PROCEDURES Final Result [facility] [address] [place] [address] * (ABNORMAL) Lipid Panel, Standard (03/06/2024 9:16 AM EDT) Triglycerides 87 <150 mg/dL [facility] Comment:Desirable Triglyceri de: less than 150 mg/dLBorderline High Triglyceride 150-199 mg/dLHigh Triglyceride: 200-499 mg/dLVery High Triglyceride: greater than or equal to 5OO mg/dL Cholesterol 196 <200 mg/dL [facility] Comment:Desirable Cholestero l: less than 200 mg/dLBorderline High Cholesterol: 200-239 mg/dLHigh Cholesterol: greater than 239 mg/dL LDL Cholesterol Calculated 147(H) <100 mg/dL [facility] Comment:Desirable LDL: less than 100 mg/dLNear Optimal/Above Optimal LDL: 110- 129 mg/dLBorderline High LDL: 130-159 mg/dLHigh LDL: 160-189 mg/dLVery High LDL: greater than or equal to 190 mg/dL HDL Cholesterol 32(L) >40 mg/dL [facility] Comment:Desirable HDL: great er than 40 mg/dL Note: This HDL assay may give artificially low results in patients with liver disease. Blood Venous blood specimen / Unknown 03/06/2024 9:16 AM EDT 03/06/2024 2:07 PM EDT Thomas Macario MD LAB BLOOD ORDERABL ES Final Result [facility] [address] [place], [place] [phone] from Last 3 Months or Most Recently Relevant to Health Maintenance Insurance [facility] MEDICARE REPLACEMENT PPO Care Teams Paper Machine Backtender Relationship Specialty Start Date End Date Thomas Paredes MD [address] [place] [id number] PCP - General Internal Medicine 02/27/20
--- OUTSIDE RECORDS SUMMARY | 2025-06-04 15:09 | XMS_ITS | Encounter Summary ---
Author Organization [employer] Address [address] [facility] 7t [place] [address] Care Team Providers Care Bevel Face Stoner And Polisher Name Role Phone Thomas Paredes MD Primary Care Prov ider Encounter Details Date Type Department Care Team ([facility] st Contact Info) Description 07/16/2024 Orders Only [facility] CHC MED & PEDS [address] [place], [place] [phone] Aidan Harmon MD [address] [place] [address] Social History Tobacco Use Types Packs/Day Years [...] documented as of this encounter Care Teams Bevel Face Stoner And Polisher Relationship Specialty Start Date End Date Thomas Paredes MD [address] [place] [id number] PCP - General Internal Medicine 02/27/20 documented as of this encounter
--- OUTSIDE RECORDS SUMMARY | 2025-06-04 15:09 | XMS_ITS | Encounter Summary ---
Author Organization [employer] Address [address] [place] [address] Care Team Providers Care Travel Professional Name Role Phone Thomas Paredes MD Primary Care Prov ider Encounter Details Date Type Department Care Team ([facility] st Contact Info) Description 09/15/2022 Orders Only [facility] [address] [place] [address] Joyce Solitario LPN Social History Tobacco Use Types Packs/Day Years Used Date Smoking Tobacco: Never Assessed Sex and Gender Information Value Date Recorded Sex Assigned at Male 07/04/2022 10:37 AM EDT Legal Sex Male 10:37 AM EDT Gender Identity Male 07/04/2022 10:37 AM EDT Sexual Orientation Straight 07/04/2022 10 :37 AM EDT documented as of this encounter Plan of Treatment Not on file documented as of this encounter Procedures Procedure Name Priority Date/Time Associated Diagnosis Comments CBC Routine 06/05/2023 11:02 AM EDT LIPID PANEL, STANDARD Routine 06/05/2023 11:02 AM EDT BASIC METABOLIC PANEL Routine 06/05/2023 11:02 AM EDT CBC Routine 10/28/2022 10:59 AM EST BASIC METABOLIC PANEL Routine 10/28/2022 10:59 AM EST documented in this encounter Results * (ABNORMAL) Lipid Panel, Standard (06/05/2023 11:02 AM EDT) Triglycerides 112 <150 mg/dL [facility] Comment:Desirable Triglyceri de: less than 150 mg/dLBorderline High Triglyceride 150-199 mg/dLHigh Triglyceride: 200-499 mg/dLVery High Triglyceride: greater than or equal to 5OO mg/dL Cholesterol 196 <200 mg/dL [facility] Comment:Desirable Cholestero l: less than 200 mg/dLBorderline High Cholesterol: 200-239 mg/dLHigh Cholesterol: greater than 239 mg/dL LDL Cholesterol Calculated 142(H) <100 mg/dL [facility] Comment:Desirable LDL: less than 100 mg/dLNear Optimal/Above Optimal LDL: 110- 129 mg/dLBorderline High LDL: 130-159 mg/dLHigh LDL: 160-189 mg/dLVery High LDL: greater than or equal to 190 mg/dL HDL Cholesterol 32(L) >40 mg/dL [facility] Comment:Desirable HDL: great er than 40 mg/dL Note: This HDL assay may give artificially low results in patients with liver disease. 06/05/2023 11:0 2 AM EDT 06/05/2023 11:05 AM EDT us Generic External Data Provider LAB BLOOD ORDERAB LES Final Result [facility] [address] [place] [phone] * (ABNORMAL) Basic Metabolic Panel (06/05/2023 11:02 AM EDT) Sodium 139 135 - 145 mmol/L [facility] Potassium 5.0 3.3 - 5.1 mmol/L [facility] Comment:Slight Hemolysis Chloride 100 96 - 108 mmol/L [facility] Carbon Dioxide 29 22 - 29 mmol/L [facility] Anion Gap 15 12 - 20 [facility] Urea Nitrogen (BUN) 33(H) 9 - 16 mg/dL [facility] Creatinine, Serum 1.92(H) 0.5 - 1.4 mg/dL [facility] Estimated Glomerular Filt Rate 34 [facility] Comment:NOTE: For -Am erican individuals, multiply the result by 1.210.Chronic Kidney Disease: Estimated GFR < 60 mL/min/1.14f4Kikvka Kidney Disease: Estimated GFR < 15 mL/min/1.73m2 Glucose 86 60 - 115 mg/dL [facility] Calcium 9.8 8.4 - 10.2 mg/dL [facility] 06/05/2023 11:0 2 AM EDT 06/05/2023 11:05 AM EDT us [facility] External Provider LAB BLO OD ORDERABLES Final Result [facility] [address] [place] [phone] * (ABNORMAL) CBC (06/05/2023 11:02 AM EDT) White Blood Count 9.8 4.8 - 10.8 X10*3/uL [facility] Red Blood Count 5.23 4.60 - 5.80 X10*6/uL [facility] Hemoglobin 14.8 14.0 - 18.0 g/dl [facility] Hematocrit 45.2 42.0 - 52.0 % [facility] Mean Corpuscular Volume 86.4 80.0 - 98.0 fL [facility] Mean Corpuscular Hemoglobin 28.3 27.0 - 33.0 pg [facility] Mean Corpuscular HGB Conc 32.7 31.0 - 36.0 g/dl [facility] Red Cell Distribution Width 16.9(H) 11.0 - 16.0 % [facility] Platelet Count 267 160 - 400 X10*3/uL [facility] Mean Platelet Volume 10.8 9.4 - 12.4 fL [facility] NRBC Pct Auto 0.0 0.0 - 0.2 /100WBC [facility] NRBC Abs Auto 0.000 0.0 - 0.012 X10*3/uL [facility] 06/05/2023 11:0 2 AM EDT 06/05/2023 11:05 AM EDT [facility] External Provider LAB BLO OD ORDERABLES Final Result Performing Organization Address [facility] Co de Phone Number [facility] [address] [place] [address] [phone] * (ABNORMAL) Basic Metabolic Panel (10/28/2022 10:59 AM EST) Sodium 140 135 - 145 mmol/L [facility] Potassium 4.1 3.3 - 5.1 mmol/L [facility] Chloride 97 96 - 108 mmol/L [facility] Carbon Dioxide 32(H) 22 - 29 mmol/L [facility] Anion Gap 15 12 - 20 [facility] Urea Nitrogen (BUN) 54(H) 9 - 16 mg/dL [facility] Creatinine, Serum 2.10(H) 0.5 - 1.4 mg/dL [facility] Estimated Glomerular Filt Rate 31 [facility] Comment:NOTE: For -Am erican individuals, multiply the result by 1.210.Chronic Kidney Disease: Estimated GFR < 60 mL/min/1.33j7Cddiic Kidney Disease: Estimated GFR < 15 mL/min/1.73m2 Glucose 119(H) 60 - 115 mg/dL [facility] Calcium 9.6 8.4 - 10.2 mg/dL [facility] 10/28/2022 10:5 9 AM EST 10/28/2022 10:59 AM EST [facility] External Provider LAB BLO OD ORDERABLES Final Result Performing Organization Address City/[facility]/ZIP Co de Phone Number [facility] [address] [place] [phone] [phone] * (ABNORMAL) CBC (10/28/2022 10:59 AM EST) White Blood Count 12.8(H) 4.8 - 10.8 X10*3/uL [facility] Red Blood Count 5.62 4.60 - 5.80 X10*6/uL [facility] Hemoglobin 16.2 14.0 - 18.0 g/dl [facility] Hematocrit 48.6 42.0 - 52.0 % [facility] Mean Corpuscular Volume 86.5 80.0 - 98.0 fL [facility] Mean Corpuscular Hemoglobin 28.8 27.0 - 33.0 pg [facility] Mean Corpuscular HGB Conc 33.3 31.0 - 36.0 g/dl [facility] Red Cell Distribution Width 14.4 11.0 - 16.0 % [facility] Platelet Count 243 160 - 400 X10*3/uL [facility] Mean Platelet Volume 10.2 9.4 - 12.4 fL [facility] NRBC Pct Auto 0.0 0.0 - 0.2 /100WBC [facility] NRBC Abs Auto 0.000 0.0 - 0.012 X10*3/uL [facility] 10/28/2022 10:5 9 AM EST 10/28/2022 10:59 AM EST us [facility] External Provider LAB BLO OD ORDERABLES Final Result Performing Organization Address City/State/[facility] Co de Phone Number [facility] [address] [place] [phone] documented in this encounter Visit Diagnoses Not on filedocumented in this encounter Additional Health Concerns Assessment Noted Time PHQ-9 Depression Total Score: 0 09/02/20 22 11:43 AM EST documented as of this encounter Care Teams Travel Professional Relationship Specialty Start Date End Date Thomas Paredes MD [address] [place] [phone] PCP - General Internal Medicine 02/27/20 documented as of this encounter
--- OUTSIDE RECORDS SUMMARY | 2025-06-04 15:09 | XMS_ITS | Encounter Summary ---
Author Organization [facility] Address [address] [place] [address] Phone Care Team Providers Care Crown Wheel Assembler Name Role Phone KrishnaThomas khan Primary Care Provider [phone] Encounter Details Date Type Department Care Team (Late st Contact Info) Description 12/28/2020 Orders Only [facility] [address] [place] [address] ProviderCheryl MD Social History Tobacco Use Types Packs/Day Years Used Date Smoking Tobacco: Never Alcohol Use Standard Drinks/Week Comments Yes 0 (1 standard drink = 0.6 oz pure alcohol) Alcoholic Drinks/day: Occasional social drink Sex and Gender Information Value Date Recorded Sex Assigned at Not on file Legal Sex Male 4:58 PM EST Gender Identity Not on file Sexual Orientation Not on file documented as of this encounter Plan of Treatment Not on file documented as of this encounter Procedures Procedure Name Priority Date/Time Associated Diagnosis Comments EXT RESULT ENTRY Routine 12/28/2020 documented in this encounter Results * (ABNORMAL) EXT RESULT ENTRY (12/28/2020) Sodium 136(A) 137 - 147 Potassium 4.0 3.4 - 5.5 Chloride 93(A) 99 - 108 Bicarbonate (CO2) 32(A) 22 - 30 mmol/L Glucose 160 60 - 200 BUN 35(A) 4 - 21 mg/dL Creatinine 2.13(A) 0.60 - 1.30 mg/dL Calcium 9.2 8.7 - 10.7 mg/dL eGFR Non-Afr Syrian 29 eGFR 34 us Historical Provider LAB BLOOD ORDERABLES Edit ed Result - Final documented in this encounter Visit Diagnoses Not on filedocumented in this encounter Care Teams Crown Wheel Assembler Relationship Specialty Start Date End Date Thomas Krishna: [phone] PCP - General Internal Medicine 08/09/21 documented as of this encounter
== END ==
LOC: HO.CARD 13:53
PROVIDERS: PCP Internal Medicine; Visit Provider Internal Medicine Cardiovascular Disease
DX: I48.19 Other persistent atrial fibrillation (principal); I65.23 Occlusion and stenosis of bilateral carotid arteries
CPT/HCPCS: 93880

== ENCOUNTER → 2025-06-04 13:55 | Outpatient (BNV) | payer MEDICARE, SELFPAY | PROVIDERS: PCP Internal Medicine; Visit Provider Radiology Diagnostic Radiology | DX: I65.23 Occlusion and stenosis of bilateral carotid arteries (principal) | CPT/HCPCS: 93880 ==

== ENCOUNTER 2025-06-12 13:28 | Outpatient (AMB) | payer MEDICARE, SELFPAY ==
--- NOTE | 2025-06-12 13:29 | A.OFFVIS_ITS ---
Vital Signs 06/12/25 13:31 Height 5 ft 9 in Weight 167 lb 8.821 oz BMI 24.7 BP 120/70 Blood Pressure Location Lt brachial Position Sitting Pulse 70 Intake Visit Reasons: Annual follow-up for AFib and CAD Intake Note: 1 year follow-up with ekg after echo feeling good. Patient did not have an echocardiogram Transportation Mechanic Required: No Allergies acetaminophen (From Tylenol) Adverse Reaction (Severe, Verified 04/01/24 16:01) Difficulty Breathing HPI Comments Details: Miguel comes for follow-up after 1 year. He said he remains active although when he walks around the block it gets tired and gets pains in his right leg. He had a follow up with vascular surgery Dr. Miramontes last July. He has not had a follow up visit since then. Vascular duplex from [place] shows patent fem-fem bypass but shows distal below knee vascular disease but possible significant stenosis in his left superficial femoral artery. He does have symptoms suggestive of claudication predominantly in his right leg as per him. He denies any cardiac symptoms of worsening shortness of breath, orthopnea, PND, leg edema. Denies any exertional chest pain. Takes all his medications. Denies any recent blood work done. Denies any bleeding issues or neurologic events. Denies any prolonged palpitation irregular heartbeat. Takes all his medications including cilostazol. Carotid duplex done recently showed no significant stenosis, mild disease [facility] Medical History Internal carotid artery stent present PVD (peripheral vascular disease) CVA (cerebral vascular accident) Surgical History S/P CABG x 5 Family History Mother No problems noted. Father No problems noted. Social History Alcohol intake: former Year quit: 2021 Patient Tobacco Use Status: Current someday Tobacco user Tobacco use type: Cigarette Cigarettes Per Day: 5 Review of Systems Const Denies chills, Denies fatigue, Denies fever(s), Denies frequent falls, Denies weakness, Denies weight gain and Denies weight loss ENT Denies dizziness Card Denies chest pain, Denies leg edema, Denies lightheadedness, Denies palpitations, Denies dyspnea, Denies dyspnea on exertion, Denies orthopnea and Denies other (loss of consciousness) Resp Denies cough, Denies dyspnea and Denies dyspnea on exertion GI Denies hematochezia and Denies change in stool character Musc Denies abnormal gait, Denies muscle weakness, Denies numbness, Denies radiating pain into limb and Denies tingling Neuro Denies Abnormal speech present, Denies abnormal gait, Denies dizziness, Denies frequent falls, Denies numbness, Denies tingling and Denies weakness Endo Denies fatigue and Denies palpitations Physical Exam Vital Signs: Last Vital Signs Pulse 70 06/12/25 13:31 BP 120/70 06/12/25 13:31 BMI result Body Mass Index 24.7 Const General: cooperative, comfortable, no acute distress, alert, awake, Physically active and well groomed Nutritional Appearance: thin Orientation/consciousness: patient oriented x3 Limitations: no limitations HEENT Head: Yes normocephalic and Yes atraumatic Neck Neck: Yes trachea midline, Yes supple and Yes no JVD Carotids: no bruits Chest Chest palpation & inspection: other ( Well-healed sternotomy scar) Resp Effort & Inspection: normal respiratory effort Auscultation: clear to auscultation bilaterally and diminished lung sounds Cardio Jugular venous distension: no JVD Rate: regular rate Rhythm: abnormal rhythm irregularly irregular Heart sounds: S1 normal heart sound present, S2 normal heart sound present, no click, no gallops and no murmurs Peripheral pulses: other (Reduced distal pulses) Skin General skin exam: no rashes or lesions noted and ecchymosis Neuro General: patient oriented x3 and no focal motor deficits Speech: No Abnormal speech present Extrem General: Yes no clubbing, cyanosis or edema Office Procedures EKG Details: EKG shows atrial fibrillation with small Q-waves in inferior leads 61099-[id number], Complete Assessment & Plan Assessment & Plan (1) Persistent atrial fibrillation: Code(s): I48.19 - Other persistent atrial fibrillation Category: Medical Plan: Persistent and rate control atrial fibrillation without any overt symptoms or signs of congestive heart failure. Last echocardiogram showed low normal LV EF with moderate lead increased wall thickness. Will follow-up echocardiogram near future. Currently adequately rate controlled without any decompensation therefore will pursue rate control strategy at this point time. Continue full oral anticoagulation, currently on Eliquis 5 mg b.i.d.. At least semi annual renal function test and annual CBC should be pursued. (2) CAD (coronary artery disease): Code(s): I25.10 - Atherosclerotic heart disease of [place] coronary artery without angina pectoris Category: Medical Plan: CAD with remote coronary artery bypass grafting without any symptoms at current point time. He has significant diffuse vascular disease including prior abdominal aortic aneurysm repair as well as peripheral vascular stenting and surgical revascularization although has symptoms suggestive of claudication. Does have significant disease mostly in the infrapopliteal distribution. A dvised to follow up with Dr. Miramontes at [facility]. Continue aggressive vascular risk factor modification. Currently on high-intensity statin therapy. Advise lipid panel in near future. Continue cilostazol therapy. Complete smoking cessation was advised Will follow up in the clinic in 1 year's time, sooner PRN. Thank you for allowing me to partake in his care. Orders: Orders Lipid Panel Today I25.10 - Atherosclerotic heart disease of [place] coronary artery without angina pectoris Complete Blood Count no Diff Today I25.10 - Atherosclerotic heart disease of [place] coronary artery without angina pectoris Basic Metabolic Panel Today I25.10 - Atherosclerotic heart disease of [place] coronary artery without angina pectoris CA echo transthoracic complete Today I48.19 - Other persistent atrial fibrillation Coding Level of Care Code Est Pt Level 4 (83969) Complex EM visit Add On G2211 Diagnoses Persistent atrial fibrillation I48.19 CAD (coronary artery disease) I25.10 CPT Codes EKG - CPT: 05649-[id number], Complete ([id number])
[2025-06-12 13:31] VITALS: BP 120/70; PULSE 70; BMI 24.7
== END 2025-06-12 14:02 | disposition home or self-care (01) ==
LOC: HO.HCS 13:28
PROVIDERS: PCP Internal Medicine; Visit Provider Internal Medicine Cardiovascular Disease
DX: I48.19 Other persistent atrial fibrillation (principal); I25.10 Atherosclerotic heart disease of native coronary artery without angina pectoris
CPT/HCPCS: 93010; 99214; G2211

== ENCOUNTER → 2025-06-12 13:28 | Outpatient (BNVA) | payer MEDICARE, SELFPAY | PROVIDERS: PCP Internal Medicine; Visit Provider Internal Medicine Cardiovascular Disease | DX: I48.19 Other persistent atrial fibrillation (principal); I25.10 Atherosclerotic heart disease of native coronary artery without angina pectoris; R94.31 Abnormal electrocardiogram [ECG] [EKG] | CPT/HCPCS: 93005; 99212 ==

== ENCOUNTER → 2025-07-11 09:52 | Outpatient (REF) | payer MEDICARE, SELFPAY ==
--- OUTSIDE RECORDS SUMMARY | 2025-07-08 13:30 | XMS_ITS | Encounter Summary ---
Author Organization [facility] Address [address] [place] [address] Care Team Providers Care Blast Hole Driller Name Role Phone Thomas Paredes MD Primary Care Prov ider Reason for Referral * Consultation (STAT) - Authorized Specialty Diagnoses / Procedures Referred By Contsotero t Referred To Contact Podiatry Diagnoses Clint, initial encounter Thomas Paredes MD [address] [place] [address] Phone: tel: fax: Thomas Turcios DPHugh [address] [facility] [address]st [address] (Left) [place] [address] Phone: tel: fax: Referral ID Status Reason Start Date Expiration Date Visits Requested Visits Authorized [id number] Authorized Specialty Services Required 07/08/2025 07/08/2026 1 1 Encounter Details Date Type Department Care Team (Latest Contact Info) Description 07/08/2025 1:30 PM EST Telemedicine [facility] [address] [place] [address] Thomas Paredes MD [address] [place], [place] [phone] Hypertensive heart disease with chronic right-sided congestive heart failure (HCC) (Primary Dx); 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); Simple chronic bronchitis (CMS/HCC) (HCC); Atrial fibrillation and flutter (HCC); Stage 4 chronic kidney disease (CMS/HCC) (HCC); Frostbite, initial encounter Social History Tobacco Use Types Packs/Day Years Used Date Smoking Tobacco: Every Day Cigarettes 0.3 0.5 Passive Smoke Exposure: Current Smokeless Tobacco: Never Alcohol Use Standard Drinks/Week Comments Never 0 (1 standard drink = 0.6 oz pur e alcohol) Depression Answer Date Recorded Patient Health Questionnaire-9 Score 0 07/08/2025 Patient Health Questionnaire-9 Score 0 07/08/2025 Last PHQ-9: Questionnaire Data Not on file 1 09/07/2024 Housing Stability Answer Date Recorded What is your housing situation today? I have rakesh nelson 07/08/[address] you li ve. Do you have problems with any of the following? None of the above 07/08/2025 Food Insecurity Answer Date Recorded Within the past 12 months, y ou worried that your food would run out before you got money to buy more: Never True 07/08/2025 Within the past 12 months,th e food you bought just didn't last and you didn't have enough money to get more: Never True 12/2024 Transportation Answer Date Recorded In the past 12 months, has l ack of transportation kept you from medical appts, meetings, work or from getting things needed for daily living? No 07/08/2025 Utilities Answer Date Recorded In the past 12 months, has t he electric, gas, oil or water company threatened to shut off services in your home? No 07/08/2025 Depression Answer Date Recorded Patient Health Questionnaire-2 Score 0 07/08/2025 Internet Access Answer Date Recorded Internet Access Q1 Yes 07/08/2025 Internet Access Q2 Not on file 07/08/2025 Sex and Gender Information Value Date Recorded Sex Assigned at Male 07/04/2022 10:37 AM EDT Legal Sex Male 10:37 AM EDT Gender Identity Male 07/04/2022 10:37 AM EDT Sexual Orientation Straight 07/04/2022 10 :37 AM EDT documented as of this encounter Functional Status * Over the past 2 weeks, how often have you been bothered by any of the following problems? Question Answer Date of Assessment Author Patient Health Questionnaire-2 Score 0 12/2024 1:24 PM Helen Sow MA * Little interest or pleasure in doing things Answer Date of Assessment Author Not at all 07/08/2025 1:24 PM Mary Sow MA * Feeling down, depressed, or hopeless Answer Date of Assessment Author Not at all 07/08/2025 1:24 PM Mary Sow MA * Trouble falling or staying asleep, or sleeping too much Answer Date of Assessment Author Not at all 07/08/2025 1:24 PM Mary Sow MA * Feeling tired or having little energy Answer Date of Assessment Author Not at all 07/08/2025 1:24 PM Mary Sow MA * Poor appetite or overeating Answer Date of Assessment Author Not at all 07/08/2025 1:24 PM Mary Sow MA * Feeling bad about yourself - or that you are a failure or have let yourself or your family down Answer Date of Assessment Author Not at all 07/08/2025 1:24 PM Mary Sow MA * Trouble concentrating on things, such as reading the newspaper or watching television Answer Date of Assessment Author Not at all 07/08/2025 1:24 PM Mary Sow MA * Moving or speaking so slowly that other people could have noticed? Or the opposite - being so fidgety or restless that you have been moving around a lot more than usual. Answer Date of Assessment Author Not at all 07/08/2025 1:24 PM Mary Sow MA * Thoughts that you would be better off or hurting yourself in some way Answer Date of Assessment Author Not at all 07/08/2025 1:24 PM Mary Sow MA * Patient Health Questionnaire-9 Score Answer Date of Assessment Author 0 07/08/2025 1:24 PM Mary Sow MA documented as of this encounter Progress Notes * Thomas Macario MD - 07/08/2025 1:30 PM EST Subjective Patient ID: Migue Wilson is a 79 y.o. male who presents for No chief complaint on file.. HPI Patient was scheduled for a televisit to discuss recent incident in which he was exposed to the cold and now has skin color changes in his toes Review of Systems Constitutional: Negative for chills, fatigue and fever. Respiratory: Negative for cough and shortness of breath. Cardiovascular: Negative for chest pain and palpitations. Objective Physical Exam Neurological: General: No focal deficit present. Mental Status: He is oriented to person, place, and time. Psychiatric: Mood and Affect: Mood normal. Behavior: Behavior normal. 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) Other Visit Diagnoses Frostbite, initial encounter Patient was cleaning the leaves outside and was exposed for a prolongued time to the cold weather, he noticed toe skin color changes and numbness, he did not seek medical attention, its been over 72 hours, refers mild improvement, no blister, no tenderness, will refer to podiatry stat, documented in this encounter Plan of Treatment Scheduled Referrals Name Type Priority Associated Diagnoses Orde r Schedule Referral to Podiatry Outpatient Referral STAT Frostbite, initial encounter Expected: 07/08/2025 (Approximate), Expires: 07/08/2026 documented as of this encounter Visit Diagnoses Diagnosis Hypertensive heart disease with chronic right-sided congestive heart failure (HCC)- Primary 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
--- NOTE | 2025-07-11 09:55 | CA_ITS ---
Transthoracic Echocardiogram Patient (Last, First, Middle): Migue Wilson R Gender: M Date of : 1945 Age: 79 Procedure Date: 07/11/2025 Procedure Type: Transthoracic Echocardiogram Location: OP Height: 175.26 cm Weight: 74.84 kg BSA: 1.90 m2 Heart Rate: 48 bpm BP: 145 / 90 mmHg Elevator Service Technician: PATY Referring MD: Timmy Sebastian MD Truck Unloader: Timmy Sebatsian MD Symptoms: I48.19 - Other persistent atrial fibrillation Study Quality: Fair ECG Rhythm: Atrial Fibrillation Conclusions: - 1. Low normal LV ejection fraction 50-55% with mild LVH 2. Moderate biatrial enlargement 3. Cardiac valvular Dopplers within normal limits 4. Normal RV systolic pressure 5. No gross pericardial effusion Findings Left Ventricle Normal left ventricular cavity size. There is mildly increased left ventricular wall thickness. The left ventricular systolic function is low normal. The visually estimated ejection fraction is between 50-55%. Diastolic function is indeterminate on the basis of available data. Wall Motion Rest Echo Findings The basal inferior and basal inferolateral segments are akinetic. All other scored wall segments showed normal motion. Right Ventricle Normal right ventricular cavity size and systolic function. Atria Moderate biatrial enlargement. There is no evidence of interatrial shunt. Aortic Valve The aortic valve was not well visualized. There is no aortic valve stenosis. There is no aortic valve regurgitation. Mitral Valve There is mild posterior mitral leaflet thickening. There is mild mitral annular calcification. There is trace mitral valve regurgitation. There is no mitral valve stenosis. Pulmonic Valve The pulmonic valve was not well visualized. Tricuspid Valve Likely normal tricuspid valve structure and function. There is trace tricuspid valve regurgitation. The right ventricular systolic pressure is normal. The right ventricular systolic pressure is 12 mmHg. Normal right atrial pressure. There is no evidence of pulmonary hypertension. Great Vessels The pulmonary artery was not well visualized. There is mild dilatation of the ascending aorta measuring 3.70 cm. Venous The inferior vena cava is normal in size and collapses greater than 50% with inspiration. Pericardium/Pleural There is no evidence of pericardial effusion. Measurements 2D Linear Measurements IVSd: 1.30 0.6-0.9/0.6-1.0 cm LVIDd: 4.52 3.9-5.3/4.2-5.9 cm LVIDd Index: 2.38 2.4-3.2/2.2-3.1 cm/m2 LVIDs: 2.85 2.0-3.6 cm LVPWd: 1.26 0.7-1.1 cm LA Diam: 4.20 2.7-3.8/3.0-4.0 cm LAIDs Index: 2.21 1.5-2.3 cm/m2 LV Mass: 273.05 67-162/88-224 g LV Mass Index: 143.71 43-95/49-115 g/m2 LVOT Diam: 2.00 3.0+(-)1.3 cm 2D Systolic Function EF 4C: 58.90 >55% EF 2C: 51.00 >55% EF BiP: 54.70 >55% Mitral Valve MV Pk E: 0.76 MV PK A: 0.39 MV Decel Time: 313.00 E/A: 1.90 E'Lateral: 9.63 E'Medial: 5.95 E/E' Med: 12.70 E/E' Lat: 7.90 PHT: 92.00 MVA PHT: 2.39 Decel [place]: 2.42 Aortic Valve AoV Pk Rafael: 1.15 AoV Mn Rafael: 0.82 AoV VTI: 0.25 AoV Pk Grad: 5.00 Aov Mn Grad: 3.00 MARNI Cont.VTI: 1.74 LVOT LVOT Pk Rafael: 0.62 LVOT Mn Rafael: 0.44 LVOT VTI: 0.14 LVOT Pk Grad: 2.00 LVOT Mn Grad: 1.00 LVOT Diam: 2.00 LVOT Area: 3.14 Diastolic Function MV Pk E: 0.76 MV Pk A: 0.39 E/A: 1.90 E'Medial: 5.95 E/E' Med: 12.70 E' Laterial: 9.63 E/E' Lat: 7.90 Right Ventricle TAPSE (mm): 9.22 TVS' Rafael: 6.31 Tricuspid Valve TR Pk Rafael: 1.53 TR Pk Grad: 9.00 RA Press: 3.00 RVSP: 12.00 Great Vessels Aorta Sinus of Valsalva: 3.60 2.0-3.5 cm Ao Asc: 3.70 2.1-3.4 cm Pulmonary Valve PV Pk Rafael: 0.71 Peak PV Grad: 2.00 Updated in Other Vendor System with Status of Final Timmy Sebastian MD electronically signed on 07/11/2025 12:34:56 PM with status of Final
--- OUTSIDE RECORDS SUMMARY | 2025-07-11 11:24 | XMS_ITS | Encounter Summary ---
Author Organization [employer] Address [address] [facility] 7t [place] [address] Care Team Providers Care Printing Supervisor Name Role Phone Thomas Paredes MD Primary Care Prov ider Encounter Details Date Type Department Care Team ([facility] st Contact Info) Description 07/16/2024 Orders Only [facility] CHC MED & PEDS [address] [place], [place] [phone] Aidan Harmon MD [address] [place] [address] Social History Tobacco Use Types Packs/Day Years [...] documented as of this encounter Care Teams Printing Supervisor Relationship Specialty Start Date End Date Thomas Paredes MD [address] [place] [id number] PCP - General Internal Medicine 02/27/20 documented as of this encounter
--- OUTSIDE RECORDS SUMMARY | 2025-07-11 11:24 | XMS_ITS | Patient Health Record ---
Author Organization [facility] Address [address] [place] [address] Care Team Providers Care Corn Cutter Name Role Phone Jose Francisco Marks MD Primary Care Provider Unavailab Cole Marcus DO Unavailable Unavailable Reason For Referral No Information Medications Medication SIG (Take, Route, Frequency, Duration) Notes Start Date End Date Status dilTIAZem HCl ER 240 MG Capsule Extended Release 24 Hour 1 capsule on an empty stomach in the morning Orally Once a day for DX: 401.1 Hypertension Active Furosemide 20 MG Tablet 1 tablet Orally Once a day Active Warfarin Sodium 5 MG Tablet 1 tablet Orally Once a day A ctive Vitamin D3 1000 UNIT Capsule 1 capsule Orally Once a day Active Fish Oil 1000 MG Capsule Delayed Release 1 capsule Orally Once a day Active Metoprolol Tartrate 25 mg 25 MG Tablet 1 tablet Orally Twice a day Active Atorvastatin Calcium 10 MG Tablet 1 tablet Orally Once a day A ctive Cilostazol 100 MG Tablet 1 tablet 30 min utes before or 2 hours after breakfast and dinner Orally Twice a day Active Aspirin 325 mg 325 mg tablet 1 tablet orally daily Active Social History Tobacco Use: Social History Observation Description Date Details (start date - stop date) Former Smoker NA - NA Social History Tobacco Use: Social Info Question Answer Notes Tobacco Use: Date tobacco status assessed 11/16/2015 Smoked 40 yrs on and off, 1ppd at most. Status: Former smoker Years since quit: 12 Year quit smokin Patient counseled on the dangers of smoking and urged to quit 12/10/2014 Section Notes: Originally from [place], moved to [place] in 1962. Prior [employer], [employer]. 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 No radiation / heavy metal exposure. Lives with , no pets. Social drinker, w/ beer 1-2 about once a month. Denies drug use, other natural supplements Originally from [place], moved to [place] in 1962. Prior [employer]. Worked in [employer]. No radiation / heavy metal exposure. Lives with , no pets. Social drinker, w/ beer 1-2 about once a month. Denies drug use, other natural supplements Originally from [place], moved to [place] in 1962. Prior [employer]. Worked in [employer]. No radiation / heavy metal exposure. Lives with , no pets. Social drinker, w/ beer 1-2 about once a month. Denies drug use, other natural supplements Originally from [place], moved to [place] in 1962. Prior [employer]. Worked in [employer]. No radiation / heavy metal exposure. Lives with , no pets. Social drinker, w/ beer 1-2 about once a month. Denies drug use, other natural supplements Originally from [place], moved to [place] in 1962. Prior [employer]. Worked in [employer]. No radiation / heavy metal exposure. Lives with , no pets. Social drinker, w/ beer 1-2 about once a month. 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 Problem Coronary artery disease (21318349) CAD (coronary artery disease) (I25.10) Active confirmed Problem Chronic kidney disea se stage 4 (221424832) Chronic kidney disease, stage IV (severe) (N18.4) Active confirmed Problem Benign essential hypertension (2718081) Essential hypertension, benign (I10) Active confirmed Problem Chronic kidney disea se due to hypertension (969931080097917) Hypertensive chronic kidney disease with stage 1 through stage 4 chronic kidney disease, or unspecified chronic kidney disease (I12.9) Active confirmed Problem Pure hypercholesterolemia (564975888) Hyperlipidemia type II (E78.0) Active confirmed Problem Hyperlipidemia (07784378) Hyperlipidemia with target LDL less than 70 (E78.5) Active confirmed Problem Acute renal cortical necrosis (589140192) 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 Plan Of Treatment Pending Test Test Name Order Date BUN 11/16/2015 BUN 07/20/2015 BUN 04/22/2015 BUN 01/07/2015 CALCIUM 01/07/2015 CALCIUM 04/22/2015 CALCIUM 12/10/2014 CALCIUM 11/16/2015 CALCIUM 07/20/2015 CBC/NO DIFF (W/PLT) 11/16/2015 CBC/NO DIFF (W/PLT) 04/22/2015 CBC/NO DIFF (W/PLT) 07/20/2015 CBC/NO DIFF (W/PLT) 01/07/2015 CREATININE, SERUM 01/07/2015 CREATININE, SERUM 07/20/2015 CREATININE, SERUM 04/22/2015 CREATININE, SERUM 11/16/2015 LYTES 07/20/2015 LYTES 11/16/2015 LYTES 04/22/2015 LYTES 01/07/2015 MAGNESIUM 01/07/2015 MAGNESIUM 07/20/2015 MAGNESIUM 11/16/2015 MAGNESIUM 04/22/2015 PHOSPHORUS 04/22/2015 PHOSPHORUS 07/20/2015 PHOSPHORUS 12/10/2014 PHOSPHORUS 11/16/2015 PTH 11/16/2015 PTH 07/20/2015 PTH 04/22/2015 PTH 01/07/2015 Urine MICROALBUMIN RANDOM 01/07/2015 Urine MICROALBUMIN RANDOM 04/22/2015 Urine MICROALBUMIN RANDOM 07/20/2015 Urine MICROALBUMIN RANDOM 11/16/2015 eGFR 11/16/2015 eGFR 07/20/2015 eGFR 01/07/2015 eGFR 04/22/2015 Vit D25 OH Total D 01/07/2015 Vit D25 OH Total D 04/22/2015 Vit D25 OH Total D 07/20/2015 Vit D25 OH Total D 11/16/2015 Future Test Test Name Order Date eGFR 12/31/2014 Insurance Providers Payer Name Payer Address Payer Phone Subscriber Number Group Number Insured Name Patient Relationship to Insured Coverage Start Date Coverage End Date [place] [id number] [phone] [id number] Slater Self - patient is the insured Medical (General) History Medical History History ICD Code HTN HLD CAD s/p 5vCABG 2002, recent NSTEMI 11/21 14 HFpEF - TTE 11/28/14 w/ EF 60 %, RWMA c/w CAD, GrI diastolic dysfunction, RVSP 27mmHg AFlutter / AFib, s/p DCCV 2013, AC Warfa rin PVD on cilostazol CKD Surgical History Surgery Date(Month/Year) Tonsillectomy 1967 5vCABG 2002 Hospitalization History Reason Date(Month/Year) SVT, NSTEMI, OLGA on CKD 11/2014
--- OUTSIDE RECORDS SUMMARY | 2025-07-11 11:24 | XMS_ITS | Encounter Summary ---
Author Organization [employer] Address [address] [facility] 7 [place] [address] Care Team Providers Care Mill Tender Second Operator Name Role Phone Thomas Paredes MD Primary Care Prov ider Reason for Visit * Reason Onset Date Comments Referral 07/10/2025 Encounter Details Date Type Department Care Team ([facility] st Contact Info) Description 07/10/2025 Telephone [facility] CHC MED & PEDS [address] [place], [place] [phone] Thomas Paredes MD [address] [place] [address] Referral Social History Tobacco Use Types Packs/Day Years [...] encounter Miscellaneous Notes * Telephone Encounter - Duke Parson - 07/10/2025 10:53 AM EST Tc from [place] with [facility] reporting that they did receive the referral but with the schedule there is nothing available. [facility] did report that there is podiatry center down the street. They are recent and [place] [facility] [facility] [place] [facility] center. [phone] Phone number [phone] Fax number documented in this encounter Plan of Treatment Not on file documented as of this encounter Visit Diagnoses Not on filedocumented in this encounter Additional Health Concerns Assessment Noted Time PHQ-9 Depression Total Score: 0 07/08/20 25 1:24 PM EST documented as of this encounter Care Teams Mill Tender Second Operator Relationship Specialty Start Date End Date Thomas Paredes MD [address] [place] [phone] PCP - General Internal Medicine 02/27/20 documented as of this encounter
--- OUTSIDE RECORDS SUMMARY | 2025-07-11 11:24 | XMS_ITS | Encounter Summary ---
Author Organization [employer] Address [address] [facility] 7 [place] [address] Care Team Providers Care Insurance Representative Name Role Phone Thomas Paredes MD Primary Care Prov ider Reason for Visit * Reason Comments Med Change Request Encounter Details Date Type Department Care Team ([facility] Contact Info) Description 09/12/2023 Refill [facility] CHC MED & PEDS [address] [place], [place] [phone] Thomas Paredes MD [address] [place] [address] Social History Tobacco Use Types Packs/Day Years [...] documented as of this encounter Care Teams Insurance Representative Relationship Specialty Start Date End Date Thomas Paredes MD [address] [place] [phone] PCP - General Internal Medicine 02/27/20 documented as of this encounter
--- OUTSIDE RECORDS SUMMARY | 2025-07-11 11:24 | XMS_ITS | Encounter Summary ---
Author Organization [employer] Address [address] [facility] 7t [place] [address] Care Team Providers Care Court Of Appeals Judge Name Role Phone Thomas Paredes MD Primary Care Prov ider Encounter Details Date Type Department Care Team ([facility] st Contact Info) Description 09/20/2023 Orders Only [facility] CHC MED & PEDS [address] [place], [place] [phone] Thomas Paredes MD [address] [place], [place] [phone] Social History Tobacco Use Types Packs/Day Years [...] documented as of this encounter Care Teams Court Of Appeals Judge Relationship Specialty Start Date End Date Thomas Paredes MD [address] [place] [phone] PCP - General Internal Medicine 02/27/20 documented as of this encounter
--- OUTSIDE RECORDS SUMMARY | 2025-07-11 11:24 | XMS_ITS | Encounter Summary ---
Author Organization [employer] Address [address] [facility] [address] [place] [address] Care Team Providers Care Casing In Line Feeder Name Role Phone Thomas Paredes MD Primary Care Prov ider Reason for Visit * Reason Comments Med Change Request Encounter Details Date Type Department Care Team ([facility] Contact Info) Description 09/19/2023 Refill [facility] MED & PEDS [address] [place], [place] [phone] Thomas Paredes MD [address] [place] [address] Social History Tobacco Use Types Packs/Day Years [...] documented as of this encounter Care Teams Casing In Line Feeder Relationship Specialty Start Date End Date Thomas Paredes MD [address] [place] [phone] PCP - General Internal Medicine 02/27/20 documented as of this encounter
--- OUTSIDE RECORDS SUMMARY | 2025-07-11 11:24 | XMS_ITS | Encounter Summary ---
Author Organization [employer] Address [address] [facility] 7 [place] [address] Care Team Providers Care Yacht Builder Name Role Phone Thomas Paredes MD Primary Care Prov ider Reason for Visit * Reason Comments Med Refill Encounter Details Date Type Department Care Team ([facility] st Contact Info) Description 07/08/2025 Refill [facility] CHC MED & PEDS [address] [place], [place] [phone] Thomas Paredes MD [address] [place] [address] Social History Tobacco Use Types Packs/Day Years [...] Sow [place] documented as of this encounter Plan of Treatment Not on file documented as of this encounter Visit Diagnoses Not on filedocumented in this encounter Additional Health Concerns Assessment Noted Time PHQ-9 Depression Total Score: 0 07/08/20 25 1:24 PM EST documented as of this encounter Care Teams Yacht Builder Relationship Specialty Start Date End Date Thomas Paredes MD [address] [place] [phone] PCP - General Internal Medicine 02/27/20 documented as of this encounter
--- OUTSIDE RECORDS SUMMARY | 2025-07-11 11:24 | XMS_ITS | Encounter Summary ---
Author Organization [employer] Address [address] [facility] 7 [place] [address] Care Team Providers Care Bobbin Sorter Name Role Phone Thomas Paredes MD Primary Care Prov ider Reason for Visit * Reason Onset Date Comments Nurse Triage 07/07/2025 Encounter Details Date Type Department Care Team ([facility] st Contact Info) Description 07/07/2025 Telephone [facility] MEDICINE [address] [place] [address] Thomas Paredes MD [address] [place] [address] Nurse Triage Social History Tobacco Use Types Packs/Day Years [...] Sow [place] documented as of this encounter Miscellaneous Notes * Telephone Encounter - Bess Moon RN - 07/07/2025 1:47 PM EST T/C returned to pt to triage. Pt reports that he has, nava bite again . He reports that he was outside with his son over the weekend and was in the cold for too long with his PVD. He reports toes were cold to the touch and pale but now 2 days later are bright red and wrinkly. Pt denied blisters, falling, shivering, signs of infection, or any other Sx. Pt declining an appt because he reports that he already has an appt this Monday07/09/25 at [facility] to have it evaluated. Wascalling because he was wondering if PCP can put in STAT referral to podiatry. Informed I would sendmessage. Protocol Used: Frostbite (Adult) Protocol-Based Disposition: Home Care Positive Triage Question: * Mild frostbite or frostnip symptoms * All higher-acuity triage questions were negative Care Advice Discussed: * Reasons To Call Back - Color and sensation don't return to normal after 1 hour of rewarming - Frostbitten part develops blisters - You become worse * Telephone Encounter - Winnie López - 07/07/2025 11:58 AM EST Symptom: Foot or Ankle Swelling Outcome: Schedule an urgent appointment (within 1 hour) or talk to a nurse or provider soon Reason: Trouble walking The caller accepted this outcome. PCP Dr. Krishna documented in this encounter Plan of Treatment Not on file documented as of this encounter Visit Diagnoses Not on filedocumented in this encounter Additional Health Concerns Assessment Noted Time PHQ-9 Depression Total Score: 0 03/05/20 24 2:43 PM EDT documented as of this encounter Care Teams Bobbin Sorter Relationship Specialty Start Date End Date Thomas Paredes MD [address] [place] [phone] PCP - General Internal Medicine 02/27/20 documented as of this encounter
--- OUTSIDE RECORDS SUMMARY | 2025-07-11 11:24 | XMS_ITS | Clinical Summary ---
Author Organization [employer] Address [address] [place] [address] Care Team Providers Care White Goods Appliance Tech Name Role Phone Thomas Paredes MD Primary Care Prov ider Allergies Active Allergy Reactions Criticality Noted Date Comments Acetaminophen Anaphylaxis,Hives High 02/27/2020 Other reaction(s): Edema of throat, Other (see comments) Medications atorvastatin (Lipitor) 40 MG tabletIndications: Mixed hyperlipidemia Take 1 tablet (40 mg) by mouth in the morning. 90 tablet 1 09/22/19 23 Active cilostazol (Pletal) 50 MG tablet Take 1 tablet by mouth 2 times daily. 12/04/19 21 Active Eliquis 5 MG tablet Take 1 tablet by mouth twice daily 12/08/19 23 Active bromfenac (Xibrom) 0.09 % solution eye drops INSTILL 1 DROP INTO RIGHT EYE ONCE DAILY FOR 14 WEEKS 11/24/19 23 Active aspirin 81 MG EC tablet Take 1 tablet by mouth in the morning. 01/22/20 13 Active tiotropium (Spiriva HandiHaler) [address] 1 capsule (18 mcg) into inhaler and inhale in the morning. 30 capsule 11 09/12/19 24 Active metoprolol tartrate (Lopressor) 25 MG tabletIndications: Atrial fibrillation and flutter (HCC) Take 1 tablet by mouth twice daily 180 tablet 11/30/19 25 Active allopurinol (Zyloprim) 100 MG tabletIndications: Idiopathic chronic gout of foot without tophus, unspecified laterality TAKE 1 TABLET BY MOUTH IN THE MORNING 90 tablet 11/30/19 25 Active amLODIPine (Norvasc) 5 MG tabletIndications: Primary hypertension TAKE 1 TABLET BY MOUTH EVERY DAY 90 tablet 08/25/20 25 Active torsemide (Demadex) 20 MG tablet TAKE 1 TABLET BY MOUTH IN THE MORNING 90 tablet 07/09/20 25 Active pantoprazole (ProtoNix) 40 MG EC tablet Take 1 tablet by mouth once daily 90 tablet 07/09/20 25 Active cholecalciferol VITAMIN D (Vitamin D-3) 50 MCG (1999 UT) tablet TAKE 1 TABLET BY MOUTH IN THE MORNING 90 tablet 07/09/20 25 Active pantoprazole (ProtoNix) 40 MG EC tablet Take 1 tablet by mouth once daily 90 tablet 11/30/19 25 025 Discontinued torsemide (Demadex) 20 MG tablet TAKE 1 TABLET BY MOUTH IN THE MORNING 90 tablet 11/30/19 25 025 Discontinued cholecalciferol VITAMIN D (Vitamin D-3) 50 MCG (1999 UT) tablet TAKE 1 TABLET BY MOUTH IN THE MORNING 90 tablet 11/30/19 25 025 Discontinued Active Problems Problem Noted Date Diagnosed Date Hypertensive heart disease w ith chronic right-sided congestive heart failure 07/08/2025 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) 07/08/2025 Subacute cough 09/12/2023 Assessment & Plan (09/12/2023 [...] s/p EVAR 04/2018 Carotid artery disease 07/24/2023 Chronic ischemic heart disease 07/24/2023 1 09/23/2022 Overview (07/24/2023): Feb 07, 2020 Entered By: HERIBERTO CHAHAL Comment: s/p CABG Arteriosclerosis of coronary artery bypass graft 07/24/2023 07/24/2023 Overview (07/24/2023): Apr 16, 2018 Entered By: WILLA JOHNSON Comment: ??/??/2001 CABG ([place]): 5 Vessel, Anatomy unknownAug 2017 Entered By: [...] metoprolol on hold and follow up with explosive ordnance technician for further reccomendations, in case of palpitation he might take half of the metoprolol Atrial fibrillation and flutter 07/04/2022 Assessment & Plan (09/02/2022 12:22 PM EST): Patient on aspirin and plavix due to intolerance for anticoagulation, lost follow up with explosive ordnance technician, he was being evaluated for a watchman, [...] order for new labs for guidance, saw commission agent livestock about 2 months ago. Stage 4 chronic kidney disease (CMS/HCC) 021 Assessment & Plan (09/02/2022 12:25 PM EST): Followed by nephrology, no changes made, will follow up recomendations Cerebrovascular accident (CV A) due to stenosis of right carotid artery 02/23/2016 07/24/2023 Left ventricular hypertrophy 01/14/2014 Overview (07/24/2023): Apr 16, 2018 Entered By: WILLA JOHNSON Comment: 01/14/2014 Echo ([place]): LVH 13 mm Encounters Date Type Department Care Team Description 07/10/2025 Telephone [facility] [address] [place] [address] Thomas Paredes MD Referral 07/08/2025 1:30 PM EST Telemedicine [facility] [address] [place] [address] Thomas Paredes MD Hypertensive heart disease with chronic right-sided congestive heart failure (HCC) (Primary Dx); 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); Simple chronic bronchitis (CMS/HCC) (HCC); Atrial fibrillation and flutter (HCC); Stage 4 chronic kidney disease (CMS/HCC) (HCC); Frostbite, initial encounter 07/08/2025 Travel 07/08/2025 Refill [facility] [address] [place] [address] Thomas Paredes MD 07/07/2025 Telephone [facility] [address] [place] [address] Thomas Paredes MD Nurse Triage 06/04/2025 Orders Only [facility] External Provider, [facility] 04/25/2025 Refill [facility] [address] [place] [address] Thomas Paredes MD Primary hypertension from Last [...] Done Comments Derm Melanoma Skin Check 05/12/1946 Zoster Vaccines (1 of 2) 11/09/1993 RSV Patients and Patients Aged 60 years or older (1 - 1-dose 75+ series) 11/09/2018 COVID-19 Vaccine ( season) 2025 05/17/2024, 06/05/2023, 08/30/2022, Additional history exists Influenza Vaccine (#1) 2025 , 06/05/2023, 08/30/2022, Additional history exists Tobacco Screening 06/25/2025 06/25/2024 Alcohol/Substance Use Screening 07/08/2026 07/08/2025 Depression Screening 07/08/2026 07/08/2025, 07/08/20 25 SDOH Screening 07/08/2026 07/08/2025 DTaP/Tdap/Td Vaccines (2 - Td or Tdap) 07/05/2027 07/05/2017 Lipid Panel 03/06/2029 03/06/2024, 10/0 10/2022, 12/12/2022, Additional history exists Pneumococcal Vaccine: 50+ [...] Procedure Name Priority Date/Time Associated Diagnosis Comments [facility] US CAROTID ARTERY DUPLEX BILATERAL Routine 06/04/2025 2:05 PM EDT LIPID PANEL, STANDARD Routine 03/06/2024 9:16 AM EDT Mixed hyperlipidemia from Last 3 Months or Most Recently Relevant to Health Maintenance Results * [facility] US Carotid Artery Duplex Bilateral (06/04/2025 2:05 PM EDT) 06/04/2025 2:05 PM EDT Narrative [facility] - 06/04/2025 2:46 PM EDT [place] [id number] Ultrasound Report Signed Patient: Migue Wilson MR#: [id number] : 1945 Acct:[id number] Age/Sex: 79 / M ADM Date: 06/04/25 Loc: HOAnoopCARD Attending Dr: Timmy Sebastian MD Ordering Physician: Timmy Sebastian MD Date of Service: 06/04/25 Procedure(s): US carotid duplex BI Accession Number(s): [id number] cc: Thomas Paredes MD; Timmy Sebastian MD [...] 06/04/25 1443 DD/ 1405 TD/TT: 06/04/25 1415 Customer Experience Retail Clerk: Procedure Note Donotuseinterpreter, Image - 06/04/2025 [place] [id number] Ultrasound Report Signed Patient: Migue Wilson R#: [id number] : 4Acct:[id number] Age/Sex: 79 / MADM Date: 06/04/25 Loc: HO.CARD Attending Dr: Timmy Sebastian MD Ordering Physician: Timmy Sebastian MD Date of Service: 06/04/25 Procedure(s): US carotid duplex BI Accession Number(s): [id number] cc: Thomas Paredes MD; Timmy Sebastian MD [...] MD Signed By: <Electronically signed by Jonathon oBo MD in OV> 06/04/25 1443 DD/ 1405 TD/TT: 06/04/25 1415 Customer Experience Retail Clerk: us [facility] External Provider CV VASC ULAR PROCEDURES Final Result [facility] [address] [place] [phone] * (ABNORMAL) Lipid Panel, Standard (03/06/2024 9:16 AM EDT) Triglycerides 87 <150 mg/dL [facility] Comment:Desirable Triglyceri de: less than 150 mg/dLBorderline High Triglyceride 150-199 mg/dLHigh Triglyceride: 200-499 mg/dLVery High Triglyceride: greater than or equal to 5OO mg/dL Cholesterol 196 <200 mg/dL [facility] Comment:Desirable Cholestero l: less than 200 mg/dLBorderline High Cholesterol: 200-239 mg/dLHigh Cholesterol: greater than 239 mg/dL LDL Cholesterol Calculated 147(H) <100 mg/dL [facility] Comment:Desirable LDL: less than 100 mg/dLNear Optimal/Above Optimal LDL: 110- 129 mg/dLBorderline High LDL: 130-159 mg/dLHigh LDL: 160-189 mg/dLVery High LDL: greater than or equal to 190 mg/dL HDL Cholesterol 32(L) >40 mg/dL [facility] Comment:Desirable HDL: great er than 40 mg/dL Note: This HDL assay may give artificially low results in patients with liver disease. Blood Venous blood specimen / Unknown 03/06/2024 9:16 AM EDT 03/06/2024 2:07 PM EDT us Thomas Macario MD LAB BLOOD ORDERABL ES Final Result [facility] [address] [place] [phone] from Last 3 Months or Most Recently Relevant to Health Maintenance Insurance [facility] MEDICARE REPLACEMENT PPO Care Teams [employer] Appliance Tech Relationship Specialty Start Date End Date KrishnaThomas Alvarado MD [address] [place] [address] [place] [phone] PCP - General Internal Medicine 02/27/20
--- OUTSIDE RECORDS SUMMARY | 2025-07-11 11:24 | XMS_ITS | Encounter Summary ---
Author Organization [employer] Address [address] [facility] [address] [place] [address] Care Team Providers Care Asbestos Coverer Name Role Phone Thomas Paredes MD Primary Care Prov ider Encounter Details Date Type Department Care Team (Latest Contact Info) Description 07/08/2025 Travel Social History Tobacco Use Types Packs/Day Years [...] is your housing situation today? I have rakeshdavid nelson 07/08/[address] you [...] documented as of this encounter Care Teams Asbestos Coverer Relationship Specialty Start Date End Date Thomas Paredes MD [address] [place] [address] [place] [phone] PCP - General Internal Medicine 02/27/20 documented as of this encounter
--- OUTSIDE RECORDS SUMMARY | 2025-07-11 11:24 | XMS_ITS | Encounter Summary ---
Author Organization [employer] Address [address] [facility] [address] [place] [address] Care Team Providers Care Tipple Worker Name Role Phone Thomas Paredes MD Primary Care Prov ider Encounter Details Date Type Department Care Team ([facility] st Contact Info) Description 09/15/2022 Orders Only [facility] [address] [place] [address] Joyce Solitario LPN Social History Tobacco Use [...] 11:02 AM EDT) Triglycerides 112 <150 mg/dL [facility] Comment:Desirable Triglyceri de: less than 150 mg/dLBorderline High Triglyceride 150-199 mg/dLHigh Triglyceride: 200-499 mg/dLVery High Triglyceride: greater than or equal to 5OO mg/dL Cholesterol 196 <200 mg/dL [facility] Comment:Desirable Cholestero l: less than 200 mg/dLBorderline High Cholesterol: 200-239 mg/dLHigh Cholesterol: greater than 239 mg/dL LDL Cholesterol Calculated 142(H) <100 mg/dL [facility] Comment:Desirable LDL: less than 100 mg/dLNear Optimal/Above Optimal LDL: 110- 129 mg/dLBorderline High LDL: 130-159 mg/dLHigh LDL: 160-189 mg/dLVery High LDL: greater than or equal to 190 mg/dL HDL Cholesterol 32(L) >40 mg/dL [facility] Comment:Desirable HDL: great er than 40 mg/dL Note: This HDL assay may give artificially low results in patients with liver disease. 06/05/2023 11:0 2 AM EDT 06/05/2023 11:05 AM EDT us Generic External Data Provider LAB BLOOD ORDERAB LES Final Result [facility] [address] [place] [phone] * (ABNORMAL) Basic Metabolic Panel (06/05/2023 11:02 AM EDT) Sodium 139 135 - 145 mmol/L [facility] Potassium 5.0 3.3 - 5.1 mmol/L [facility] Comment:Slight Hemolysis Chloride 100 96 - 108 mmol/L [facility] Carbon Dioxide 29 22 - 29 mmol/L [facility] Anion Gap 15 12 - 20 [facility] Urea Nitrogen (BUN) 33(H) 9 - 16 mg/dL [facility] Creatinine, Serum 1.92(H) 0.5 - 1.4 mg/dL [facility] Estimated Glomerular Filt Rate 34 [facility] Comment:NOTE: For -Am erican individuals, multiply the result by 1.210.Chronic Kidney Disease: Estimated GFR < 60 mL/min/[id number] Kidney Disease: Estimated GFR < 15 mL/min/1.73m2 Glucose 86 60 - 115 mg/dL [facility] Calcium 9.8 8.4 - 10.2 mg/dL [facility] 06/05/2023 11:0 2 AM EDT 06/05/2023 11:05 AM EDT us [facility] External Provider LAB BLO OD ORDERABLES Final Result [facility] [address] [place] [phone] * (ABNORMAL) CBC (06/05/2023 11:02 AM EDT) White Blood Count 9.8 4.8 - 10.8 X10*3/uL [facility] Red Blood Count 5.23 4.60 - 5.80 X10*6/uL [facility] Hemoglobin 14.8 14.0 - 18.0 g/dl [facility] Hematocrit 45.2 42.0 - 52.0 % [facility] Mean Corpuscular Volume 86.4 80.0 - 98.0 fL [facility] Mean Corpuscular Hemoglobin 28.3 27.0 - 33.0 pg [facility] Mean Corpuscular HGB Conc 32.7 31.0 - 36.0 g/dl [facility] Red Cell Distribution Width 16.9(H) 11.0 - 16.0 % [facility] Platelet Count 267 160 - 400 X10*3/uL [facility] Mean Platelet Volume 10.8 9.4 - 12.4 fL [facility] NRBC Pct Auto 0.0 0.0 - 0.2 /100WBC [facility] NRBC Abs Auto 0.000 0.0 - 0.012 X10*3/uL [facility] 06/05/2023 11:0 2 AM EDT 06/05/2023 11:05 AM EDT [facility] External Provider LAB BLO OD ORDERABLES Final Result Performing Organization Address [facility] Co de Phone Number [facility] [address] [place] [address] [phone] * (ABNORMAL) Basic Metabolic Panel (10/28/2022 10:59 AM EST) Sodium 140 135 - 145 mmol/L [facility] Potassium 4.1 3.3 - 5.1 mmol/L [facility] Chloride 97 96 - 108 mmol/L [facility] Carbon Dioxide 32(H) 22 - 29 mmol/L [facility] Anion Gap 15 12 - 20 [facility] Urea Nitrogen (BUN) 54(H) 9 - 16 mg/dL [facility] Creatinine, Serum 2.10(H) 0.5 - 1.4 mg/dL [facility] Estimated Glomerular Filt Rate 31 [facility] Comment:NOTE: For -Am erican individuals, multiply the result by 1.210.Chronic Kidney Disease: Estimated GFR < 60 mL/min/1.48c3Rlgiow Kidney Disease: Estimated GFR < 15 mL/min/1.73m2 Glucose 119(H) 60 - 115 mg/dL [facility] Calcium 9.6 8.4 - 10.2 mg/dL [facility] 10/28/2022 10:5 9 AM EST 10/28/2022 10:59 AM EST [facility] External Provider LAB BLO OD ORDERABLES Final Result Performing Organization Address City/[facility]/ZIP Co de Phone Number [facility] [address] [place] [phone] [phone] * (ABNORMAL) CBC (10/28/2022 10:59 AM EST) White Blood Count 12.8(H) 4.8 - 10.8 X10*3/uL [facility] Red Blood Count 5.62 4.60 - 5.80 X10*6/uL [facility] Hemoglobin 16.2 14.0 - 18.0 g/dl [facility] Hematocrit 48.6 42.0 - 52.0 % [facility] Mean Corpuscular Volume 86.5 80.0 - 98.0 fL [facility] Mean Corpuscular Hemoglobin 28.8 27.0 - 33.0 pg [facility] Mean Corpuscular HGB Conc 33.3 31.0 - 36.0 g/dl [facility] Red Cell Distribution Width 14.4 11.0 - 16.0 % [facility] Platelet Count 243 160 - 400 X10*3/uL [facility] Mean Platelet Volume 10.2 9.4 - 12.4 fL [facility] NRBC Pct Auto 0.0 0.0 - 0.2 /100WBC [facility] NRBC Abs Auto 0.000 0.0 - 0.012 X10*3/uL [facility] 10/28/2022 10:5 9 AM EST 10/28/2022 10:59 AM EST us [facility] External Provider LAB BLO OD ORDERABLES Final Result Performing Organization Address City/State/[facility] Co de Phone Number [facility] [address] [place] [phone] documented in this encounter Visit Diagnoses Not on filedocumented in this encounter Additional Health Concerns Assessment Noted Time PHQ-9 Depression Total Score: 0 09/02/20 22 11:43 AM EST documented as of this encounter Care Teams Tipple Worker Relationship Specialty Start Date End Date Thomas Paredes MD [address] [place] [phone] PCP - General Internal Medicine 02/27/20 documented as of this encounter
== END ==
LOC: HO.CARD 09:52
PROVIDERS: Visit Provider Internal Medicine Cardiovascular Disease
DX: I48.19 Other persistent atrial fibrillation (principal)
CPT/HCPCS: 93306

== ENCOUNTER → 2025-07-11 09:55 | Outpatient (BNV) | payer MEDICARE, SELFPAY | PROVIDERS: Visit Provider Internal Medicine Cardiovascular Disease | DX: I51.7 Cardiomegaly (principal) | CPT/HCPCS: 93306 ==